=== PATIENT | male | born 1950 | race Caucasian/White ===

== ENCOUNTER 2017-07-22 18:47 | Inpatient (IN) | payer MEDICARE, OTHER ==
[~2017-07-22] VITALS: Ht 193 cm; Wt 66.2 kg
--- NOTE | 2017-07-22 18:59 | ED.ADGEN ---
Past History Past Medical History: CAD, CHF, COPD Past Surgical History: Other Smoking: Cigarettes Adult General Chief Complaint Chief Complaint ".. I just.... got discharged ......from the [place]... but they ....did not.... get my home.... oxygen set up.. and my tank ....ran out... " [facility] HPI Patient is a 66 year old male who presents with respiratory failure. Pt. presents with hypoxia after recent discharge from [place] for COPD exacerbation. Bi Consultant advised on arrival in severe respiratory distress . The pt. sats were too low to read and even after treatments his sats. were only 70%, Pt. hx 95 pack year smoking hx, has been so short of breath today he could not smoke. Pt. portable tank ran out today. Pt. hx of 3 liter oxygen dependent. Pt. sent to [place] since [place] on diversion. Pt. has as yet not been intubated for a COPD exacerbation. Pt. denies any travel, any specific ill contacts, other than other hospitalized patients. Patient in obvious respiratory distress and tachycardic. Pt. only able to speak in 2 to 3 words groups due to his severe dyspnea. Patient has been complaining of chills, fever, rhinorrhea , pharyngitis, nausea,myalgia, arthralgia, and malaise. Patient reports his symptoms seem worse the last couple days. Review of Systems Review of Systems Constitutional: Subjective history fever or chills [] Eyes: Denies change in visual acuity, redness, or eye pain [] HENT: History nasal congestion and sore throat [] Respiratory: History cough and shortness of breath [] Cardiovascular: No additional information not addressed in HPI [] GI: Denies abdominal pain, nausea, vomiting, bloody stools or diarrhea [] : Denies dysuria or hematuria [] Musculoskeletal: Complains of generalized muscle and or joint pain [] Integument: Denies rash or skin lesions [] Neurologic: Denies headache, focal weakness or sensory changes [] Endocrine: Denies polyuria or polydipsia [] All other systems were reviewed and found to be within normal limits, except as documented in this note. Family History Family History Noncontributory Current Medications Current Medications Current Medications Medications (Trade) Dose Ordered Sig/Ingrid Start Time Stop Time Status Last Admin Dose Admin Albuterol/ Ipratropium (Duoneb) 3 ml RTQID 07/23/17 08:00 07/24/17 07:59 Aspirin (Children'S Aspirin) 81 mg DAILY 07/23/17 09:00 Azithromycin (Zithromax) 250 mg DAILY 07/23/17 09:00 Ceftriaxone Sodium 1 gm/ Sodium Chloride 50 ml @ 100 mls/hr DAILY 07/23/17 09:00 UNV Ceftriaxone Sodium (Rocephin) 1 gm 1X ONCE 07/22/17 19:45 07/22/17 19:46 DC 07/22/17 19:42 1 GM Enoxaparin Sodium (Lovenox 80mg Syringe) 70 mg Q12HR 07/23/17 09:00 Enoxaparin Sodium (Lovenox) 75 mg BID 07/22/17 21:00 07/22/17 21:09 DC Info (Do NOT chart on this entry -- for MONITORING) 1 each PRN DAILY PRN 07/22/17 20:45 07/24/17 20:44 Iohexol (Omnipaque 300 Mg/ml) 75 ml 1X ONCE 07/22/17 21:00 07/22/17 21:01 DC 07/22/17 21:19 75 ML Lactobacillus Rhamnosus (Culturelle) 1 cap BID 07/23/17 09:00 Methylprednisolone Sodium Succinate (SOLU-Medrol 125MG VIAL) 125 mg 1X ONCE 07/22/17 19:45 07/22/17 19:46 DC 07/22/17 19:38 125 MG Morphine Sulfate (Morphine 10mg Syringe) 10 mg PRN QID PRN 07/22/17 21:00 Ondansetron HCl (Zofran) 4 mg PRN Q4HRS PRN 07/22/17 20:30 07/23/17 20:29 Oseltamivir Phosphate (Tamiflu) 75 mg BID 07/22/17 21:00 07/27/17 20:59 Sodium Chloride 1,000 ml @ 100 mls/hr Q10H 07/22/17 19:00 07/23/17 04:59 07/22/17 19:42 100 MLS/HR See nursing for home meds Allergies Allergies Allergies Coded Allergies Type Severity Reaction Last Updated Verified No Known Drug Allergies 07/22/17 No No known drug allergies Physical Exam Physical Exam Constitutional: in acute distress, non-toxic appearance. [] HENT: Normocephalic, atraumatic, bilateral external ears normal, oropharynx moist, mild injection of pharynx, no oral exudates, nose rhinorrhea. Edentulous. Eyes: PERRLA, EOMI, conjunctiva normal, no discharge. [] Neck: Normal range of motion, no tenderness, supple, no stridor. [] Cardiovascular: Tachycardia Heart rate regular rhythm, no murmur [] Lungs & Thorax: Bilateral breath sounds equal apex with scattered wheezes throughout auscultation, [retractions, minimal air movement Abdomen: Bowel sounds normal, soft, no tenderness, no masses, no pulsatile masses. [] Skin: Warm, dry, no erythema, no rash. [] Back: Chronic low back pain, but complains of generalized arthralgia, myalgia and malaise. no CVA tenderness. Old surgical scars Extremities: No tenderness, no cyanosis, no clubbing, ROM intact, no edema. Muscle wasting Neurologic: Alert and oriented X 3, normal motor function, normal sensory function, no focal deficits noted. [] Psychologic: Affect anxious, judgement normal, mood normal. [] Current Patient Data Vital Signs Vital Signs Date Time Temp Pulse Resp B/P (MAP) Pulse Ox O2 Delivery O2 Flow Rate FiO2 07/22/17 19:20 97 Nasal Cannula 3.0 07/22/17 18:50 98.1 116 20 Lab Results Laboratory Tests Test 07/22/17 18:50 07/22/17 19:00 07/22/17 19:20 White Blood Count 10.0 x10^3/uL (4.0-11.0) Red Blood Count 5.34 x10^6/uL (4.30-5.70) Hemoglobin 17.2 g/dL (13.0-17.5) Hematocrit 50.2 % (39.0-53.0) Mean Corpuscular Volume 94 fL (79-100) Mean Corpuscular Hemoglobin 32 pg (25-35) Mean Corpuscular Hemoglobin Concent 34 g/dL (31-37) Red Cell Distribution Width 12.8 % (11.5-14.5) Platelet Count 199 x10^3/uL (140-400) Neutrophils (%) (Auto) 92 % (31-73) H Lymphocytes (%) (Auto) 3 % (24-48) L Monocytes (%) (Auto) 4 % (0-9) Eosinophils (%) (Auto) 0 % (0-3) Basophils (%) (Auto) 0 % (0-3) Neutrophils # (Auto) 9.2 x10^3uL (1.8-7.7) H Lymphocytes # (Auto) 0.3 x10^3/uL (1.0-4.8) L Monocytes # (Auto) 0.4 x10^3/uL (0.0-1.1) Eosinophils # (Auto) 0.0 x10^3/uL (0.0-0.7) Basophils # (Auto) 0.0 x10^3/uL (0.0-0.2) Prothrombin Time 11.8 SEC (9.4-11.4) H Prothrombin Time INR 1.2 (0.9-1.1) H PTT 27 SEC (23-33) D-Dimer (Funmi) 1.07 mg/L (0.00-0.50) H Sodium Level 138 mmol/L (136-145) Potassium Level 4.9 mmol/L (3.5-5.1) Chloride Level 98 mmol/L (98-107) Carbon Dioxide Level 32 mmol/L (21-32) Anion Gap 8 (6-14) Blood Urea Nitrogen 25 mg/dL (8-26) Creatinine 0.9 mg/dL (0.7-1.3) Estimated GFR (Cockcroft-Gault) 85.0 Glucose Level 155 mg/dL (70-99) H Calcium Level 8.9 mg/dL (8.5-10.1) Magnesium Level 2.3 mg/dL (1.8-2.4) Total Bilirubin 0.4 mg/dL (0.2-1.0) Direct Bilirubin 0.1 mg/dL (0.0-0.2) Aspartate Amino Transferase (AST) 39 U/L (15-37) H Alanine Aminotransferase (ALT) 36 U/L (16-63) Alkaline Phosphatase 85 U/L (46-116) Creatine Kinase 82 U/L (39-308) Creatine Kinase MB (Mass) 3.7 ng/mL (0.0-3.6) H Creatine Kinase MB Relative Index 4.5 % (0-4) H Troponin I Quantitative < 0.017 ng/mL (0-0.055) FY-Kka-U-Type Natriuretic Peptide 288 pg/mL (0-124) H Total Protein 7.5 g/dL (6.4-8.2) Albumin 3.3 g/dL (3.4-5.0) L Lipase 67 U/L (73-393) L Blood pH 7.35 (7.35-7.46) Blood Gas PCO2 57 mmHg (35-46) H Blood Gas PO2 100 mmHg (80-100) Blood Gas HCO3 31 mmol/L (21-28) H Arterial Bld O2 Saturation (Calc) 97 % (92-99) FiO2 32 % Influenza Type A (Rapid) Negative (NEGATIVE) Influenza Type B (Rapid) Positive (NEGATIVE) EKG EKG My interpretation EKG shows a sinus tachycardia at 107 bpm with bi multiple P waves, left axis and anterior lateral strain pattern.[] Radiology/Procedures Radiology/Procedures My interpretation chest x-ray shows chronic scarring, flattening of diaphragm and hyperexpanded with emphysema/COPD changes.[] CT of chest pending at time of admission Course & Med Decision Making Course & Med Decision Making Pertinent Labs and Imaging studies reviewed. (See chart for details) Discussed presentation, testing and tx. plan with Dr. Fierro for further evaluation and treatment [] Final Impression Final Impression 1. Respiratory Failure 2. COPD exacerbation 3. Hypoxia[] 4. Influenza B 5. Elevated d-dimer 6. Elevated glucose 7. Viral syndrome Problems: Dragon Disclaimer Dragon Disclaimer This electronic medical record was generated, in whole or in part, using a voice recognition dictation system. KALIA QUIÑONES MD Jul 22, 2017 18:59
[2017-07-22] MEDS ORDERED: IPRATRPIUM/ALBUTEROL 0.5/2.5MG 3 ML NEBU. NEB ONE (19:00)
[2017-07-22] MEDS ORDERED: IV NORMAL SALINE 1,000ML 1,000 ML IV SCH (19:00)
[2017-07-22 19:11] LABS: BGAS PH 7.35 (7.35-7.46)
[2017-07-22 19:16] LABS: BASO % 0 % (0-3); EOS % 0 % (0-3); HEMATOCRIT 50.2 % (39.0-53.0); HEMOGLOBIN 17.2 g/dL (13.0-17.5); LYMPH # 0.3 x10^3/uL (1.0-4.8); LYMPH % 3 % (24-48); MEAN CORPUSCULAR HEMOGLOBIN 32 pg (25-35); MEAN CORPUSCULAR HGB CONC 34 g/dL (31-37); MEAN CORPUSCULAR VOLUME 94 fL (79-100); MONO # 0.4 x10^3/uL (0.0-1.1); MONO % 4 % (0-9); NEUT # 9.2 x10^3uL (1.8-7.7); NEUT % 92 % (31-73); PLATELET COUNT 199 x10^3/uL (140-400); RED BLOOD COUNT 5.34 x10^6/uL (4.30-5.70); RED CELL DISTRIBUTION WIDTH 12.8 % (11.5-14.5)
[2017-07-22] MEDS ORDERED: cefTRIAXone SODIUM 1 GM VIAL IV ONE (19:29)
[2017-07-22 19:36] LABS: ALBUMIN 3.3 g/dL (3.4-5.0); CALCIUM 8.9 mg/dL (8.5-10.1); CREATININE 0.9 mg/dL (0.7-1.3); DIRECT BILIRUBIN 0.1 mg/dL (0.0-0.2); MAGNESIUM 2.3 mg/dL (1.8-2.4); POTASSIUM 4.9 mmol/L (3.5-5.1); TOTAL BILIRUBIN 0.4 mg/dL (0.2-1.0); TOTAL PROTEIN 7.5 g/dL (6.4-8.2)
[2017-07-22] MEDS ORDERED: methylPREDNISolone SOD SUCC PF 125 MG/2 ML VIAL. IV ONE (19:45)
[2017-07-22] MEDS ORDERED: AZITHROMYCIN 250 MG TABLET. PO ONE (19:45)
[2017-07-22] MEDS ORDERED: cefTRIAXone IV Push 1 GM VIAL. IVP ONE (19:45)
[2017-07-22] MEDS ORDERED: MORPHINE SULFATE 10 MG/ML SYRINGE. SQ ONE (19:45)
[2017-07-22] MEDS ORDERED: ASPIRIN 81 MG TAB.CHEW PO ONE (19:45)
[2017-07-22 20:08] LABS: INFLUENZA A PATIENT NEGATIVE (NEGATIVE); INFLUENZA B PATIENT POSITIVE (NEGATIVE)
[2017-07-22] MEDS ORDERED: ENOXAPARIN ** NOTE DOSE ** SYRINGE SQ ONE ×2 (20:18→20:30)
[2017-07-22] MEDS: OSELTAMIVIR 75 MG CAPSULE PO SCH ×2 (20:22→20:33)
[2017-07-22] MEDS ORDERED: OSELTAMIVIR 75 MG CAPSULE PO ONE (20:30)
[2017-07-22] MEDS ORDERED: ONDANSETRON PF 4 MG/2 ML VIAL. IV PRN (20:30)
[2017-07-22] MEDS ORDERED: CONTRAST GIVEN MC PRN (20:45)
[2017-07-22] MEDS ORDERED: ENOXAPARIN 40 MG/0.4 ML DISP.SYRIN. SQ SCH (21:00)
[2017-07-22] MEDS ORDERED: MORPHINE SULFATE 10 MG/ML SYRINGE. SQ PRN (21:00)
[2017-07-22] MEDS ORDERED: IOHEXOL 300 MG/ML 75 ML VIAL. IV ONE (21:00)
--- NOTE | 2017-07-22 21:51 | EKG ---
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
[2017-07-22 22:16] LABS: AMPHETAMINE/METHAMPHETAMINE NEG (NEG); BARBITURATES NEG (NEG); BENZODIAZEPINES POS (NEG); CANNABINOIDS NEG (NEG); COCAINE NEG (NEG); METHADONE NEG (NEG); OPIATES POS (NEG); PHENCYCLIDINE NEG (NEG)
[2017-07-22 22:19] VITALS: BP 133/81
--- NOTE | 2017-07-22 22:23 | RAD ---
Exam performed: CT angiogram chest. HISTORY: COPD, emphysema, shortness of breath and elevated d-dimer. DATE OF SERVICE: 07/22/2017. COMPARISON: None available TECHNIQUE: Contiguous helical acquisitions are obtained through the chest during intravenous administration of 75 cc of Omnipaque 300. Sagittal and coronal MIP images are obtained and reviewed. FINDINGS: Adequate opacification of the pulmonary arteries. No filling defects to suggest pulmonary embolism is seen. Mild ectasia of the ascending aorta which measures up to 3.8 cm maximum AP dimension at the level of right main pulmonary artery. The central airway is patent without endoluminal lesions. No neck or axillary is seen. Mildly prominent mediastinal and right hilar lymph nodes are identified. Bilateral emphysematous changes with more severe biapical emphysematous changes. Patchy infiltrates seen in both lung bases and right middle lobe, greatest in the right lung base. There are changes of mild bronchiectasis in both lower lobes. There is no pleural effusion or pneumothorax. Limited evaluation of the upper abdominal structures is unremarkable. There is perhaps a nonobstructing calculus in the left kidney. IMPRESSION: 1. Diffuse bilateral emphysematous changes with scattered infiltrates in both lower lobes and right middle lobe. 2. No evidence of pulmonary embolism seen. 3. Mild aneurysmal dilatation of the ascending aorta measuring up to 3.8 cm at the level of right main pulmonary artery. 4. Nonobstructing left renal calculus. PQRS Compliance Statement: One or more of the following individualized dose reduction techniques were utilized for this examination: 1. Automated exposure control 2. Adjustment of the mA and/or kV according to patient size 3. Use of iterative reconstruction technique Electronically signed by: Anabella Arrieta MD (07/22/2017 10:19 PM) [facility]
[2017-07-22 22:28] LABS: BACTERIA,URINE 0 /HPF (0-FEW); BILIRUBIN,URINE NEG (NEG); CLARITY,URINE CLEAR; COLOR,URINE YELLOW; GLUCOSE,URINE NEG (NEG); NITRITE,URINE NEG (NEG); SQUAMOUS EPITHELIAL CELL,UR FEW /LPF; UROBILINOGEN,URINE 0.2 mg/dL (0.2 mg/dL)
[2017-07-22 22:31] LABS: HYALINE CASTS, URINE FEW /HPF
[2017-07-23] VITALS (7 sets, daily range): BP systolic 113–137; BP diastolic 71–85
[2017-07-23] MEDS: IPRATRPIUM/ALBUTEROL 0.5/2.5MG 3 ML NEBU. NEB SCH ×4 (04:40→20:48)
[2017-07-23] MEDS: ALPRAZolam 0.25 MG TABLET PO PRN ×3 (06:06→21:07)
[2017-07-23] MEDS: ASPIRIN 81 MG TAB.CHEW PO SCH (09:00)
[2017-07-23] MEDS ORDERED: ENOXAPARIN ** NOTE DOSE ** SYRINGE SQ SCH (09:00)
[2017-07-23] MEDS: OSELTAMIVIR 75 MG CAPSULE PO SCH ×2 (09:19→21:07)
[2017-07-23] MEDS: LACTOBACILLUS RHAMNOSUS GG 1 CAPSULE. PO SCH ×2 (09:20→21:07)
[2017-07-23] MEDS: AZITHROMYCIN 250 MG TABLET. PO SCH (09:20)
--- NOTE | 2017-07-23 09:51 | RAD ---
Indication: Hypoxemia. History of COPD. Technique: Portable AP upright chest x-ray Comparison: None Findings: Heart is normal in size. Lungs are hyperinflated without focal consolidation. No pneumothorax or pleural effusion. Visualized bony thorax within normal limits. Impression: No acute cardiopulmonary process. Findings of COPD.
[2017-07-23] MEDS ORDERED: methylPREDNISolone SOD SUCC PF 125 MG/2 ML VIAL. IV ONE (15:00)
[2017-07-23] MEDS ORDERED: ALBUTEROL SULFATE 2.5 MG/3 ML NEBU. NEB PRN (15:00)
[2017-07-23] MEDS: oxyCODONE IR 5 MG TABLET PO PRN ×2 (15:08→21:07)
[2017-07-23] MEDS ORDERED: GABA-586 PO (16:35)
[2017-07-23] MEDS ORDERED: OXYC10TA PO (16:35)
[2017-07-23 17:12] LABS: BGAS PH 7.37 (7.35-7.46)
[2017-07-23] MEDS: PIPERACILLIN/TAZOBACTAM 3.375 GM in IV NORMAL SALINE 50ML 50 ML IV SCH (17:28)
[2017-07-23] MEDS ORDERED: cefTRIAXone IV Push 1 GM VIAL. IVP SCH (20:00)
--- NOTE | 2017-07-23 20:40 | HP ---
ADMIT DATE: 07/22/2017 HISTORY OF PRESENT ILLNESS: The patient is a 66-year-old male patient, a , who came to the Emergency Room, who was discharged from a [facility] yesterday. He was admitted there with COPD exacerbation and was discharged home with oxygen. Unfortunately, his oxygen tank was empty and the certified medical dosimetrist on arrival found him to be in severe respiratory distress and his oxygen saturation was extremely low and even after treatment, his oxygen saturation was only 70%. The patient is a heavy smoker, has been a smoker for almost 45 years and has a 95 pack year smoking history and apparently has been so short of breath that he could not smoke. His oxygen portable tank ran out yesterday. He has been on 3 L of oxygen continuously. He was sent to [facility] since the OR was on diversion; however, he has never been intubated for COPD exacerbation. He denied any travel, any specific ill contact other than being hospitalized patient and by the time he arrived here, he was in obvious respiratory distress, tachypneic, was barely able to walk, to speak even 2-3 words due to severe dyspnea, has been complaining of chills, fever, rhinorrhea, pharyngitis, nausea, myalgia, arthralgia and malaise and he reported that his symptoms seem to be worse the last couple of days. He was evaluated in the Emergency Room, was found to be positive for influenza B. His D-dimer was high and he underwent CT angio, which basically showed no evidence of pulmonary embolism; however, he has diffuse bilateral emphysematous changes with scattered infiltrates in both lower lobes and right middle lobe and was admitted with COPD exacerbation, acute hypoxic hypercapnic respiratory failure, pneumonia, and ____ influenza B. PAST MEDICAL HISTORY: Significant for COPD. He has also bilateral cataract, underwent cataract extraction in 1 eye and is scheduled to have it done to the other eye. PAST SURGICAL HISTORY: Significant for multiple prostate biopsies with questionable prostate cancer, nasal surgery, back surgery. ALLERGIES: The patient has no known drug allergies. MEDICATIONS: Unfortunately, we do not know his home medications. FAMILY HISTORY: He has 2 brothers, 1 killed himself, one still alive and healthy, one sister is alive, but does not know her. Both parents were . SOCIAL HISTORY: He is , has no children. He is a heavy smoker, smokes 2-1/2 packs a day for almost 45 years. Does not drink alcohol or use any recreational drugs. He is retired from the [employer]. REVIEW OF SYSTEMS: The patient has bilateral cataracts and status post cataract extraction in 1 eye. Denied any glaucoma or macular degeneration. Denied any earache, tinnitus or sensorineural deafness. Denied any nosebleeds, stuffy nose or postnasal drip. Denied any sore throat, sore tongue, toothache, hoarseness of voice or difficulty swallowing. He did say that he lost about 65 pounds in the last 4 years unintentionally. Denied any nausea or vomiting, but did have multiple episodes of diarrhea over the last 4 days. Denied any hematemesis, melena or hematochezia. Denied any dysuria, frequency, or hematuria, did complain of nocturia. He states that he wakes up about up to 10 times at nighttime to go to the bathroom. He denied any chest pain. Did complain of shortness of breath, cough, which is mostly dry. Denied any orthopnea or paroxysmal nocturnal dyspnea. Did complain of chills, rigors and fever. Denied any dizziness, lightheadedness, or vertigo. PHYSICAL EXAMINATION: GENERAL: On arrival to the Emergency Room, he was somewhat cachectic. No pallor or jaundice. No lymphadenopathy, no thyromegaly. No jugular venous distention. No limb edema. VITAL SIGNS: His heart rate was 116, blood pressure was 133/81, temperature was 98.1, respiratory rate was 20, and oxygen saturation was 98% on 3 L of oxygen by nasal cannula. HEAD, EYES, EARS, NOSE AND THROAT: Showed normocephalic, atraumatic. NECK: Supple. HEART: Showed normal first and second heart sounds with no gallop, rub or murmur. CHEST: Clear to auscultation. No crepitation or rhonchi. ABDOMEN: Distended, soft, nontender. No guarding or rigidity. No organomegaly. Hernial orifice intact. Bowel sounds normal. NEUROLOGIC: He was awake, alert, responding appropriately. Cranial nerves intact. EXTREMITIES: He moves extremities without difficulty, ambulates without assistance or assistive devices. LABORATORY DATA: His white cell count was 10,000, hemoglobin 17, hematocrit 50, MCV 94 and platelet count of 199,000. His chemistry showed a serum sodium 138, potassium 4.9, chloride 98, bicarbonate 32, anion gap of 8, BUN 25, creatinine 0.9, estimated GFR was 85 mL per minute, his glucose 155, calcium was 8.9, magnesium was 2.3. Total bilirubin, AST, ALT, and alkaline phosphatase were normal. His total protein was 7.5, albumin was 3.3. Lipase was 67. TSH was 0.329. His arterial blood gases showed a pH of 7.35, pCO2 of 57, pO2 of 100. His bicarbonate was 31 and oxygen saturation was 97% on FiO2 of 32%. His prothrombin time was 11.8, INR 1.2, APTT was 27. D-dimer is 1.07. Urinalysis was essentially unremarkable. There was large amount of blood and 11-20 rbc's, there were 1-4 wbc's, very few bacteria. His toxic screen was positive for opiates and benzodiazepine. His serology was positive for influenza B. His chest x-ray showed the heart is normal in size. Lungs are hyperinflated without local consolidation, no pneumothorax, no pleural effusion, visualized bony thorax within normal limits. His CT angio showed that the patient has diffuse bilateral emphysematous changes with scattered infiltrates in both lower lobes and right middle lobe. No evidence of pulmonary embolism seen. He has mild aneurysmal dilatation of the ascending aorta measuring up to 3.8 cm at the level of right main pulmonary artery, nonobstructing left renal calculus. IMPRESSION: In summary, this is a 66-year-old male patient who was admitted with an acute hypoxic hypercapnic respiratory failure, chronic obstructive pulmonary disease exacerbation, influenza B, and bilateral lung infiltrate. He has also enlarged and benign prostatic hypertrophy versus prostate cancer with severe nocturia. My plan is to discontinue the Lovenox and start him only on prophylactic dose and add steroids. Continue with IV antibiotic and nebulized treatment as well as Tamiflu. We will scan his bladder to see if he is retaining any urine as he might require catheterization. BARB CORTEZ MD DR: TRINI/jeancarlos JOB#: [id number] / [id number]
[2017-07-23] MEDS: BUDESONIDE 0.5 MG/2 ML NEBU NEB SCH (20:48)
[2017-07-23] MEDS: MONTELUKAST 10 MG TABLET. PO SCH (21:07)
[2017-07-23] MEDS: TAMSULOSIN 0.4 MG CAP.ER.24H. PO SCH (21:07)
[2017-07-23] MEDS: methylPREDNISolone SOD SUCC PF 40 MG/ML VIAL. IV SCH (22:00)
[2017-07-24] MEDS: PIPERACILLIN/TAZOBACTAM 3.375 GM in IV NORMAL SALINE 50ML 50 ML IV SCH ×3 (00:05→15:18)
[2017-07-24 02:51] VITALS: BP 115/62
[2017-07-24] MEDS: ALPRAZolam 0.25 MG TABLET PO PRN ×4 (03:05→20:21)
[2017-07-24] MEDS: oxyCODONE IR 5 MG TABLET PO PRN ×4 (03:05→20:22)
[2017-07-24] MEDS: IPRATRPIUM/ALBUTEROL 0.5/2.5MG 3 ML NEBU. NEB SCH ×4 (05:00→20:12)
[2017-07-24 05:48] VITALS: BP 114/75
[2017-07-24] MEDS: methylPREDNISolone SOD SUCC PF 40 MG/ML VIAL. IV SCH ×3 (06:25→22:25)
[2017-07-24 06:59] LABS: HEMATOCRIT 42.7 % (39.0-53.0); HEMOGLOBIN 14.3 g/dL (13.0-17.5); RED BLOOD COUNT 4.51 x10^6/uL (4.30-5.70); RED CELL DISTRIBUTION WIDTH 12.9 % (11.5-14.5); WHITE BLOOD COUNT 10.3 x10^3/uL (4.0-11.0)
[2017-07-24 07:15] LABS: ALBUMIN 2.7 g/dL (3.4-5.0); ALBUMIN/GLOBULIN RATIO 0.7 (1.0-1.7); CALCIUM 8.7 mg/dL (8.5-10.1); CREATININE 0.8 mg/dL (0.7-1.3); GFR 97.3; POTASSIUM 4.1 mmol/L (3.5-5.1); TOTAL BILIRUBIN 0.2 mg/dL (0.2-1.0); TOTAL PROTEIN 6.7 g/dL (6.4-8.2)
[2017-07-24] MEDS: LACTOBACILLUS RHAMNOSUS GG 1 CAPSULE. PO SCH ×2 (08:54→20:21)
[2017-07-24] MEDS: ASPIRIN 81 MG TAB.CHEW PO SCH (08:54)
[2017-07-24] MEDS: AZITHROMYCIN 250 MG TABLET. PO SCH (08:54)
[2017-07-24] MEDS: OSELTAMIVIR 75 MG CAPSULE PO SCH ×2 (08:54→20:21)
[2017-07-24] MEDS: ENOXAPARIN 40 MG/0.4 ML DISP.SYRIN. SQ SCH (08:55)
[2017-07-24] MEDS: BUDESONIDE 0.5 MG/2 ML NEBU NEB SCH ×2 (11:14→20:12)
[2017-07-24] MEDS: levoFLOXacin 500 MG TABLET PO SCH (17:07)
[2017-07-24 19:23] VITALS: BP 119/78
[2017-07-24] MEDS: MONTELUKAST 10 MG TABLET. PO SCH (20:21)
[2017-07-24] MEDS: TAMSULOSIN 0.4 MG CAP.ER.24H. PO SCH (20:21)
[2017-07-24 22:18] VITALS: BP 96/71
[2017-07-25] MEDS: PIPERACILLIN/TAZOBACTAM 3.375 GM in IV NORMAL SALINE 50ML 50 ML IV SCH ×3 (00:21→15:48)
[2017-07-25] MEDS: ALPRAZolam 0.25 MG TABLET PO PRN ×4 (00:21→14:44)
[2017-07-25] MEDS: oxyCODONE IR 5 MG TABLET PO PRN ×4 (00:22→14:44)
--- NOTE | 2017-07-25 00:28 | PN ---
DATE: 07/23/2017 SUBJECTIVE: The patient is a 66-year-old who was admitted yesterday with COPD exacerbation and acute hypoxic hypercapnic respiratory failure, bilateral lung infiltrate and influenza B. He also has chronic back pain. He continued to complain of shortness of breath and back pain. He also has pain in his suprapubic area and continued to have nocturia. PHYSICAL EXAMINATION: GENERAL: When I saw him this afternoon, he was resting slightly propped up in bed, slightly tachypneic, but there is no pallor, jaundice, cyanosis, or thyromegaly. No jugular venous distension. No lower limb edema. VITAL SIGNS: His heart rate was 79, blood pressure was 137/85, temperature was 98.4, respiratory rate was 22 and oxygen saturation was 98% on 3 liters of oxygen. HEAD, EYES, EARS, NOSE AND THROAT: Showed normocephalic, atraumatic. NECK: Supple. HEART: Showed normal first and second heart sounds with no gallop, rub or murmur. CHEST: Showed central trachea, equally reduced expansion, reduced air entry, vesicular sounds. I really could not appreciate any crepitation or rhonchi. ABDOMEN: Scaphoid, soft, nontender. NEUROLOGIC: He is awake, alert, responding appropriately. All cranial nerves are intact. He moves extremities without difficulty. He ambulates without assistance or assistive devices. ASSESSMENT: 1. Acute hypoxic hypercapnic respiratory failure. 2. Chronic obstructive pulmonary disease exacerbation. 3. Bilateral lung infiltrate. 4. Influenza B. 5. Chronic back pain. 6. Benign prostatic hypertrophy versus prostate cancer. PLAN: My plan is to put him on Solu-Medrol 125 mg once a day and 60 mg every 8 hours. Add Singulair and Pulmicort. Discontinue subcutaneous morphine. Start him on oxycodone 5 mg every 4 hours. We will scan his bladder to make sure that he has no urinary retention. Start him also on Flomax 0.4 mg. I will check and repeat all his labs including PSA tomorrow. BARB CORTEZ MD DR: TRINI/jeancarlos JOB#: [id number] / [id number]
[2017-07-25 01:29] VITALS: BP 111/76
[2017-07-25] MEDS: IPRATRPIUM/ALBUTEROL 0.5/2.5MG 3 ML NEBU. NEB SCH ×3 (05:20→14:42)
[2017-07-25 05:56] VITALS: BP 95/71
[2017-07-25] MEDS: methylPREDNISolone SOD SUCC PF 40 MG/ML VIAL. IV SCH ×2 (06:03→14:53)
[2017-07-25 06:47] LABS: BASO % 0 % (0-3); EOS % 0 % (0-3); HEMATOCRIT 39.8 % (39.0-53.0); HEMOGLOBIN 13.5 g/dL (13.0-17.5); LYMPH # 0.5 x10^3/uL (1.0-4.8); LYMPH % 5 % (24-48); MEAN CORPUSCULAR HEMOGLOBIN 32 pg (25-35); MEAN CORPUSCULAR HGB CONC 34 g/dL (31-37); MEAN CORPUSCULAR VOLUME 94 fL (79-100); MONO # 0.7 x10^3/uL (0.0-1.1); MONO % 7 % (0-9); NEUT # 8.9 x10^3uL (1.8-7.7); NEUT % 88 % (31-73); PLATELET COUNT 196 x10^3/uL (140-400); RED BLOOD COUNT 4.22 x10^6/uL (4.30-5.70); RED CELL DISTRIBUTION WIDTH 12.7 % (11.5-14.5); WHITE BLOOD COUNT 10.1 x10^3/uL (4.0-11.0)
[2017-07-25 06:50] LABS: ALBUMIN 2.4 g/dL (3.4-5.0); ALBUMIN/GLOBULIN RATIO 0.6 (1.0-1.7); CALCIUM 8.1 mg/dL (8.5-10.1); CREATININE 0.7 mg/dL (0.7-1.3); GFR 113.5; POTASSIUM 4.3 mmol/L (3.5-5.1); TOTAL BILIRUBIN 0.2 mg/dL (0.2-1.0); TOTAL PROTEIN 6.1 g/dL (6.4-8.2)
[2017-07-25] MEDS: LACTOBACILLUS RHAMNOSUS GG 1 CAPSULE. PO SCH (08:24)
[2017-07-25] MEDS: ASPIRIN 81 MG TAB.CHEW PO SCH (08:24)
[2017-07-25] MEDS: OSELTAMIVIR 75 MG CAPSULE PO SCH (08:25)
[2017-07-25] MEDS: AZITHROMYCIN 250 MG TABLET. PO SCH (08:25)
[2017-07-25] MEDS: ENOXAPARIN 40 MG/0.4 ML DISP.SYRIN. SQ SCH (08:25)
[2017-07-25] MEDS ORDERED: 0.9 % SODIUM CHLORIDE 150ML 150 ML ONE (08:39)
--- NOTE | 2017-07-25 08:49 | PN ---
DATE: SUBJECTIVE: The patient is resting, slightly propped up in bed, in no apparent respiratory distress. He is definitely much improved than yesterday. PHYSICAL EXAMINATION: GENERAL: When I examined him, he looked well. No pallor, jaundice, cyanosis, or thyromegaly. No jugular venous distension. No lower limb edema. VITAL SIGNS: His heart rate was 66, blood pressure 114/75, temperature was 97.6, respiratory rate was 20, and oxygen saturation was 98% on 2 liters of oxygen. HEAD, EYES, EARS, NOSE, AND THROAT: Normocephalic, atraumatic. NECK: Supple. HEART: Showed normal first and second heart sounds with no gallop, rub, or murmur. CHEST: Showed central trachea, equally reduced expansion, reduced air entry, vesicular sounds. I could not really appreciate any crepitation or rhonchi. ABDOMEN: Distended, soft, nontender. NEUROLOGIC: He is awake, alert, responding appropriately. Cranial nerves intact. He moves all extremities without difficulty. His intake over the last 24 hours was 1680, output was 850. LABORATORY DATA: His lab work this morning showed a white cell count of 10,300, hemoglobin 14, hematocrit 42, MCV 95 and platelet count of 178,000. His blood gases showed a pH of 7.37, pCO2 of 65, pO2 of 114, bicarb 37, and oxygen saturation was 98% on FiO2 of 36%. His blood cultures are so far negative. ASSESSMENT: This is a 66-year-old male patient, who was admitted with: 1. Acute hypoxic hypercapnic respiratory failure. 2. Chronic obstructive pulmonary disease exacerbation. 3. Influenza B. 4. Bilateral lung infiltrate, likely healthcare-associated pneumonia. 5. Benign prostatic hypertrophy. PLAN: To continue with the Lovenox for DVT prophylaxis. Continue with steroids, bronchodilators, and antibiotics as well as Tamiflu. BARB CORTEZ MD DR: TRINI/jeancarlos JOB#: [id number] / [id number]
--- NOTE | 2017-07-25 09:14 | PDOC2 ---
CONSULT Date of Admission DATE: 07/25/17 TIME: 09:02 Reason for Consult: NSVT Problem List Problems Medical Problems: (1) COPD exacerbation Status: Acute History of Present Illness Mr Nash is a 66 year old male who presented to the ED with complaints of dyspnea. He reports that he has had increasing dyspnea since March to the point that 1 week ago Tuesday he was dyspneic at rest. He was admitted overnight at the [facility] and discharged home. He went back the next day with continued symptoms and was readmitted. He was discharged Tuesday with oxygen but apparently the tank was empty so he once again called EMS, was diverted here to [facility] and admitted. He was found to have pneumonia and influenza B and last pm he had an episode of VT so consult was called. He is currently dyspneic at rest with conversing. He denies chest pain. He does report orthopnea and says he has not slept more than a few hours in quite some time due to dyspnea. He reports occasional palpitations and a remote history of recurrent syncope. He denies edema. He was noted to have wide complex tachycardia last pm, onset after up to bedside commode. Arrhythmia lasted >2 minutes and was associated with increased dyspnea and chest discomfort. Past Medical History COPD, bilateral cataract, enlarged prostate Past Surgical History cataract extraction in 1 eye and is scheduled for the other, multiple prostate biopsies, nasal surgery, back surgery Family History No history of premature coronary disease Social History SOCIAL HISTORY: He is , has no children. He is a heavy smoker, smoked 2-1/2 packs a day for almost 45 years, no smoking for 1 week. Does not drink alcohol or use any recreational drugs. He is retired from the [employer]. Current Medications Current Medications Aspirin (Children'S Aspirin) 324 mg 1X ONCE PO Last administered on 07/22/17at 19:37; Start 07/22/17 at 19:45; Stop 07/22/17 at 19:46; Status DC Sodium Chloride 1,000 ml @ 100 mls/hr Q10H IV Last administered on 07/22/17at 19 :42; Start 07/22/17 at 19:00; Stop 07/23/17 at 04:59; Status DC Methylprednisolone Sodium Succinate (SOLU-Medrol 125MG VIAL) 125 mg 1X ONCE IV Last administered on 07/22/17at 19:38; Start 07/22/17 at 19:45; Stop 07/22/17 at 19:46; Status DC Ceftriaxone Sodium 1 gm/ Sodium Chloride 50 ml @ 100 mls/hr 1X ONCE IV ; Start 07/22/17 at 19:00; Stop 07/22/17 at 19:29; Status UNV Azithromycin (Zithromax) 500 mg 1X ONCE PO Last administered on 07/22/17at 19:44 ; Start 07/22/17 at 19:45; Stop 07/23/17 at 15:19; Status DC Albuterol/ Ipratropium (Duoneb) 3 ml 1X ONCE NEB Last administered on at 19:19; Start 07/22/17 at 19:00; Stop 07/22/17 at 19:33; Status DC Morphine Sulfate (Morphine 10mg Syringe) 10 mg 1X ONCE SQ Last administered on 07/22/17at 19:35; Start 07/22/17 at 19:45; Stop 07/23/17 at 15:09; Status DC Ceftriaxone Sodium (Rocephin) 1 gm STK-MED ONCE IV ; Start 07/22/17 at 19:29; Stop 07/22/17 at 19:30; Status DC Ceftriaxone Sodium (Rocephin) 1 gm 1X ONCE IVP Last administered on 07/22/17at 19:42; Start 07/22/17 at 19:45; Stop 07/22/17 at 19:46; Status DC Oseltamivir Phosphate (Tamiflu) 75 mg 1X ONCE PO Last administered on at 20:22; Start 07/22/17 at 20:30; Stop 07/22/17 at 20:31; Status DC Enoxaparin Sodium (Lovenox 80mg Syringe) 70 mg 1X ONCE SQ Last administered on 07/22/17at 20:24; Start 07/22/17 at 20:30; Stop 07/22/17 at 20:31; Status DC Enoxaparin Sodium (Lovenox 80mg Syringe) 80 mg STK-MED ONCE SQ ; Start 07/22/17 at 20:18; Stop 07/22/17 at 20:19; Status DC Ondansetron HCl (Zofran) 4 mg PRN Q4HRS PRN IV NAUSEA/VOMITING; Start 07/22/17 at 20:30; Stop 07/23/17 at 20:29; Status DC Albuterol/ Ipratropium (Duoneb) 3 ml RTQID NEB Last administered on 07/23/17at 20 :48; Start 07/23/17 at 08:00; Stop 07/24/17 at 07:59; Status DC Enoxaparin Sodium (Lovenox) 75 mg BID SQ ; Start 07/22/17 at 21:00; Stop 07/22/17 at 21:09; Status DC Aspirin (Children'S Aspirin) 81 mg DAILY PO Last administered on 07/25/17at 08:24 ; Start 07/23/17 at 09:00 Oseltamivir Phosphate (Tamiflu) 75 mg BID PO Last administered on 07/25/17at 08: 25; Start 07/22/17 at 21:00; Stop 07/27/17 at 20:59 Azithromycin (Zithromax) 250 mg DAILY PO Last administered on 07/25/17at 08:25; Start 07/23/17 at 09:00 Ceftriaxone Sodium 1 gm/ Sodium Chloride 50 ml @ 100 mls/hr DAILY IV ; Start at 09:00; Stop 07/23/17 at 09:00; Status DC Iohexol (Omnipaque 300 Mg/ml) 75 ml 1X ONCE IV Last administered on 07/22/17at 21:19; Start 07/22/17 at 21:00; Stop 07/22/17 at 21:01; Status DC Info (Do NOT chart on this entry -- for MONITORING) 1 each PRN DAILY PRN MC SEE COMMENTS; Start 07/22/17 at 20:45; Stop 07/24/17 at 20:44; Status DC Morphine Sulfate (Morphine 10mg Syringe) 10 mg PRN QID PRN SQ PAIN; Start at 21:00; Stop 07/23/17 at 15:09; Status DC Enoxaparin Sodium (Lovenox 80mg Syringe) 70 mg Q12HR SQ Last administered on 07/23/17at 09:21; Start 07/23/17 at 09:00; Stop 07/23/17 at 14:51; Status DC Lactobacillus Rhamnosus (Culturelle) 1 cap BID PO Last administered on at 08:24; Start 07/23/17 at 09:00 Ceftriaxone Sodium 1 gm/ Sodium Chloride 50 ml @ 100 mls/hr DAILY IV ; Start at 09:00; Status UNV Ceftriaxone Sodium (Rocephin) 1 gm Q24H IVP ; Start 07/23/17 at 20:00; Stop at 20:00; Status DC Alprazolam (Xanax) 0.25 mg PRN Q4HRS PRN PO ANXIETY / AGITATION Last administered on 07/25/17 04:23; Start 07/23/17 at 04:15 Enoxaparin Sodium (Lovenox) 40 mg DAILY SQ Last administered on 07/25/17 08:25 ; Start 07/24/17 at 09:00 Methylprednisolone Sodium Succinate (SOLU-Medrol 125MG VIAL) 125 mg 1X ONCE IV Last administered on 07/23/17 15:32; Start 07/23/17 at 15:00; Stop 07/23/17 at 15:02; Status DC Methylprednisolone Sodium Succinate (SOLU-Medrol 40MG VIAL) 60 mg Q8HRS IV Last administered on 07/25/17 06:03; Start 07/23/17 at 22:00 Albuterol Sulfate (Ventolin) 2.5 mg PRN Q2HR PRN NEB SHORTNESS OF BREATH; Start 07/23/17 at 15:00 Tamsulosin HCl (Flomax) 0.4 mg QHS PO Last administered on 07/24/17 20:21; Start 07/23/17 at 21:00 Montelukast Sodium (Singulair) 10 mg QHS PO Last administered on 07/24/17 20:21 ; Start 07/23/17 at 21:00 Budesonide (Pulmicort) 0.5 mg RTBID NEB Last administered on 07/24/17 20:12; Start 07/23/17 at 20:00 Oxycodone HCl (Roxicodone) 5 mg PRN Q4HRS PRN PO PAIN Last administered on 04:23; Start 07/23/17 at 15:00 Piperacillin Sod/ Tazobactam Sod 3.375 gm/Sodium Chloride 50 ml @ 100 mls/hr Q8H IV Last administered on 07/25/17 08:24; Start 07/23/17 at 15:30 Levofloxacin/ Dextrose 100 ml @ 100 mls/hr Q24H IV Last administered on at 16:13; Start 07/23/17 at 16:00; Stop 07/24/17 at 12:06; Status DC Albuterol/ Ipratropium (Duoneb) 3 ml RTQID NEB Last administered on 07/24/17at 20 :12; Start 07/24/17 at 08:00 Levofloxacin (Levaquin) 500 mg Q24H PO Last administered on 07/24/17at 17:07; Start 07/24/17 at 16:00 Sodium Chloride 150 ml @ As Directed STK-MED ONCE .ROUTE Last administered on 07/25/17at 08:41; Start 07/25/17 at 08:39; Stop 07/25/17 at 08:40; Status DC Active Scripts Active Reported Oxycodone Hcl 10 Mg Tablet 10 Mg PO Gabapentin 300 Mg Capsule 300 Mg PO TID Allergies: Coded Allergies: No Known Drug Allergies (Unverified , 07/22/17) Review of System as per HPI General: Alert, Oriented X3, Cooperative, moderate distress HEENT: Atraumatic, EOMI Lungs: Other (decreased with occasional exp wheeze) Heart: Other (irregular rate and rhythm, no gallops) Abdomen: Normal bowel sounds, Soft Extremities: No cyanosis, Normal pulses, Other (trace edema) Neuro: Strength at 5/5 X4 ext Psych/Mental Status: Mental status NL, Mood NL VITALS Vital Signs Date Time Temp Pulse Resp B/P (MAP) Pulse Ox O2 Delivery O2 Flow Rate FiO2 07/25/17 05:56 97.5 72 18 95/71 (79) 95 Nasal Cannula 2.0 Labs Laboratory Tests Test 07/23/17 16:58 07/24/17 06:48 07/25/17 05:50 Blood Gas pH 7.37 (7.35-7.46) Blood Gas PCO2 65 mmHg (35-46) Blood Gas PO2 114 mmHg (80-100) Blood Gas HCO3 37 mmol/L (21-28) Arterial Bld O2 Saturation (Calc) 98 % (92-99) FiO2 36 % White Blood Count 10.3 x10^3/uL (4.0-11.0) 10.1 x10^3/uL (4.0-11.0) Red Blood Count 4.51 x10^6/uL (4.30-5.70) 4.22 x10^6/uL (4.30-5.70) Hemoglobin 14.3 g/dL (13.0-17.5) 13.5 g/dL (13.0-17.5) Hematocrit 42.7 % (39.0-53.0) 39.8 % (39.0-53.0) Mean Corpuscular Volume 95 fL (79-100) 94 fL (79-100) Mean Corpuscular Hemoglobin 32 pg (25-35) 32 pg (25-35) Mean Corpuscular Hemoglobin Concent 34 g/dL (31-37) 34 g/dL (31-37) Red Cell Distribution Width 12.9 % (11.5-14.5) 12.7 % (11.5-14.5) Platelet Count 178 x10^3/uL (140-400) 196 x10^3/uL (140-400) Sodium Level 141 mmol/L (136-145) 141 mmol/L (136-145) Potassium Level 4.1 mmol/L (3.5-5.1) 4.3 mmol/L (3.5-5.1) Chloride Level 100 mmol/L (98-107) 102 mmol/L (98-107) Carbon Dioxide Level 38 mmol/L (21-32) 40 mmol/L (21-32) Anion Gap 3 (6-14) -1 (6-14) Blood Urea Nitrogen 14 mg/dL (8-26) 14 mg/dL (8-26) Creatinine 0.8 mg/dL (0.7-1.3) 0.7 mg/dL (0.7-1.3) Estimated GFR (Cockcroft-Gault) 97.3 113.5 BUN/Creatinine Ratio 18 (6-20) 20 (6-20) Glucose Level 100 mg/dL (70-99) 109 mg/dL (70-99) Calcium Level 8.7 mg/dL (8.5-10.1) 8.1 mg/dL (8.5-10.1) Total Bilirubin 0.2 mg/dL (0.2-1.0) 0.2 mg/dL (0.2-1.0) Aspartate Amino Transf (AST/SGOT) 19 U/L (15-37) 17 U/L (15-37) Alanine Aminotransferase (ALT/SGPT) 27 U/L (16-63) 30 U/L (16-63) Alkaline Phosphatase 64 U/L (46-116) 54 U/L (46-116) Total Protein 6.7 g/dL (6.4-8.2) 6.1 g/dL (6.4-8.2) Albumin 2.7 g/dL (3.4-5.0) 2.4 g/dL (3.4-5.0) Albumin/Globulin Ratio 0.7 (1.0-1.7) 0.6 (1.0-1.7) Neutrophils (%) (Auto) 88 % (31-73) Lymphocytes (%) (Auto) 5 % (24-48) Monocytes (%) (Auto) 7 % (0-9) Eosinophils (%) (Auto) 0 % (0-3) Basophils (%) (Auto) 0 % (0-3) Neutrophils # (Auto) 8.9 x10^3uL (1.8-7.7) Lymphocytes # (Auto) 0.5 x10^3/uL (1.0-4.8) Monocytes # (Auto) 0.7 x10^3/uL (0.0-1.1) Eosinophils # (Auto) 0.0 x10^3/uL (0.0-0.7) Basophils # (Auto) 0.0 x10^3/uL (0.0-0.2) Images EKG - sinus tachycardia, left axis, non specific abnormalities CXR - Impression: No acute cardiopulmonary process. Findings of COPD. CT - IMPRESSION: 1. Diffuse bilateral emphysematous changes with scattered infiltrates in both lower lobes and right middle lobe. 2. No evidence of pulmonary embolism seen. 3. Mild aneurysmal dilatation of the ascending aorta measuring up to 3.8 cm at the level of right main pulmonary artery. 4. Nonobstructing left renal calculus. Assessment/Plan 1. Ventricular tachycardia 2. acute on chronic hypercapnic, hypoxic respiratory failure - multifactorial. +influenza B, pneumonia and emphysema. - mgmt per PCP 3. atrial fibrillation iwth RVR, new onset > 2 minutes of WCT suspicious for ventricular tachycardia as well as new onset atrial fibrillation with RVR. Start amiodarone drip and suggest transfer to [facility] for further cardiac workup as well as pulmonary consult. Problems: ALENA COOLEY APRN Jul 25, 2017 09:14
[2017-07-25] MEDS: BUDESONIDE 0.5 MG/2 ML NEBU NEB SCH (09:31)
[2017-07-25] MEDS ORDERED: AMIODARONE 150 MG in IV DEXTROSE 5% 100 ML IVP ONE (10:15)
[2017-07-25] MEDS ORDERED: NICOTINE 21MG PATCH. TD SCH (10:15)
[2017-07-25] MEDS ORDERED: AMIODARONE 900 MG in IV DEXTROSE 5% 500 ML IV PRN (10:30)
[2017-07-25] MEDS ORDERED: ALPR0.254 PO (10:44)
[2017-07-25] MEDS ORDERED: TAMS0.4C97 PO (10:44)
[2017-07-25] MEDS ORDERED: IPRA3AMP NEB (10:44)
[2017-07-25] MEDS ORDERED: NICO1PAT21 TP (10:44)
[2017-07-25] MEDS ORDERED: METH40VI IV (10:44)
[2017-07-25] MEDS ORDERED: [UNRECOGNIZED DRUG - CODE] IV (10:44)
[2017-07-25] MEDS ORDERED: OSEL75CA PO (10:44)
[2017-07-25] MEDS ORDERED: ALBU2.5V5 NEB (10:44)
[2017-07-25] MEDS ORDERED: LACT1CAP19 PO (10:44)
[2017-07-25] MEDS ORDERED: ENOX40DI3 SQ (10:44)
[2017-07-25] MEDS ORDERED: MONT10TA9 PO (10:44)
[2017-07-25] MEDS ORDERED: OXYC5TAB95 PO (10:44)
[2017-07-25] MEDS ORDERED: ASPI-630 PO (10:44)
[2017-07-25 10:53] VITALS: BP 116/69
[2017-07-25 15:00] VITALS: BP 141/79
[2017-07-25 15:47] VITALS: BP 141/79
--- NOTE | 2017-07-25 16:08 | PDOC3 ---
Discharge Summary Visit Information Date of Admission: Jul 22, 2017 Date of Discharge: Jul 25, 2017 Final Diagnosis Problems Medical Problems: (1) COPD exacerbation Status: Acute 1. Acute hypoxic hypercapnic respiratory failure. 2. Chronic obstructive pulmonary disease exacerbation. 3. Influenza B. 4. Bilateral lung infiltrate, likely healthcare-associated pneumonia. 5. Benign prostatic hypertrophy. 6. Tobacco use disorder 7. 3.8 cm aortic aneurysm 8. emphesema on ct 9. mildly suppressed TSH 10. DVT prophylaxis-on Lovonox Problems: Brief Hospital Course Allergies Allergies Coded Allergies Type Severity Reaction Last Updated Verified No Known Drug Allergies 07/22/17 No Vital Signs PE Mildly SOB, lungs with diffuse wheezes, cvrrr, ab soft non tender, ext without edema. Vital Signs Date Time Temp Pulse Resp B/P (MAP) Pulse Ox O2 Delivery O2 Flow Rate FiO2 07/25/17 15:47 97.7 75 141/79 (99) 99 2.0 07/25/17 14:44 18 07/25/17 10:53 Nasal Cannula Lab Results Laboratory Tests Test 07/23/17 16:58 07/24/17 06:48 07/25/17 05:50 Blood Gas pH 7.37 (7.35-7.46) Blood Gas PCO2 65 mmHg (35-46) Blood Gas PO2 114 mmHg (80-100) Blood Gas HCO3 37 mmol/L (21-28) Arterial Bld O2 Saturation (Calc) 98 % (92-99) FiO2 36 % White Blood Count 10.3 x10^3/uL (4.0-11.0) 10.1 x10^3/uL (4.0-11.0) Red Blood Count 4.51 x10^6/uL (4.30-5.70) 4.22 x10^6/uL (4.30-5.70) Hemoglobin 14.3 g/dL (13.0-17.5) 13.5 g/dL (13.0-17.5) Hematocrit 42.7 % (39.0-53.0) 39.8 % (39.0-53.0) Mean Corpuscular Volume 95 fL (79-100) 94 fL (79-100) Mean Corpuscular Hemoglobin 32 pg (25-35) 32 pg (25-35) Mean Corpuscular Hemoglobin Concent 34 g/dL (31-37) 34 g/dL (31-37) Red Cell Distribution Width 12.9 % (11.5-14.5) 12.7 % (11.5-14.5) Platelet Count 178 x10^3/uL (140-400) 196 x10^3/uL (140-400) Sodium Level 141 mmol/L (136-145) 141 mmol/L (136-145) Potassium Level 4.1 mmol/L (3.5-5.1) 4.3 mmol/L (3.5-5.1) Chloride Level 100 mmol/L (98-107) 102 mmol/L (98-107) Carbon Dioxide Level 38 mmol/L (21-32) 40 mmol/L (21-32) Anion Gap 3 (6-14) -1 (6-14) Blood Urea Nitrogen 14 mg/dL (8-26) 14 mg/dL (8-26) Creatinine 0.8 mg/dL (0.7-1.3) 0.7 mg/dL (0.7-1.3) Estimated GFR (Cockcroft-Gault) 97.3 113.5 BUN/Creatinine Ratio 18 (6-20) 20 (6-20) Glucose Level 100 mg/dL (70-99) 109 mg/dL (70-99) Calcium Level 8.7 mg/dL (8.5-10.1) 8.1 mg/dL (8.5-10.1) Total Bilirubin 0.2 mg/dL (0.2-1.0) 0.2 mg/dL (0.2-1.0) Aspartate Amino Transf (AST/SGOT) 19 U/L (15-37) 17 U/L (15-37) Alanine Aminotransferase (ALT/SGPT) 27 U/L (16-63) 30 U/L (16-63) Alkaline Phosphatase 64 U/L (46-116) 54 U/L (46-116) Total Protein 6.7 g/dL (6.4-8.2) 6.1 g/dL (6.4-8.2) Albumin 2.7 g/dL (3.4-5.0) 2.4 g/dL (3.4-5.0) Albumin/Globulin Ratio 0.7 (1.0-1.7) 0.6 (1.0-1.7) Prostate Specific Antigen 2.55 ng/ml (0.00-4.00) Neutrophils (%) (Auto) 88 % (31-73) Lymphocytes (%) (Auto) 5 % (24-48) Monocytes (%) (Auto) 7 % (0-9) Eosinophils (%) (Auto) 0 % (0-3) Basophils (%) (Auto) 0 % (0-3) Neutrophils # (Auto) 8.9 x10^3uL (1.8-7.7) Lymphocytes # (Auto) 0.5 x10^3/uL (1.0-4.8) Monocytes # (Auto) 0.7 x10^3/uL (0.0-1.1) Eosinophils # (Auto) 0.0 x10^3/uL (0.0-0.7) Basophils # (Auto) 0.0 x10^3/uL (0.0-0.2) Brief Hospital Course Mr. Nash is a 66 old [sex] who presented with [ ] HISTORY OF PRESENT ILLNESS: The patient is a 66-year-old male patient, a , who came to the Emergency Room, who was discharged from a [facility] yesterday. He was admitted there with COPD exacerbation and was discharged home with oxygen. Unfortunately, his oxygen tank was empty and the show host/hostess on arrival found him to be in severe respiratory distress and his oxygen saturation was extremely low and even after treatment, his oxygen saturation was only 70%. The patient is a heavy smoker, has been a smoker for almost 45 years and has a 95 pack year smoking history and apparently has been so short of breath that he could not smoke. His oxygen portable tank ran out yesterday. He has been on 3 L of oxygen continuously. He was sent to [facility] since the MD was on diversion; however, he has never been intubated for COPD exacerbation. He denied any travel, any specific ill contact other than being hospitalized patient and by the time he arrived here, he was in obvious respiratory distress, tachypneic, was barely able to walk, to speak even 2-3 words due to severe dyspnea, has been complaining of chills, fever, rhinorrhea, pharyngitis, nausea, myalgia, arthralgia and malaise and he reported that his symptoms seem to be worse the last couple of days. He was evaluated in the Emergency Room, was found to be positive for influenza B. His D-dimer was high and he underwent CT angio, which basically showed no evidence of pulmonary embolism; however, he has diffuse bilateral emphysematous changes with scattered infiltrates in both lower lobes and right middle lobe and was admitted with COPD exacerbation, acute hypoxic hypercapnic respiratory failure, pneumonia, and ____ influenza B. last pm he had an episode of VT so consult was called. He is currently dyspneic at rest with conversing. He denies chest pain. He does report orthopnea and says he has not slept more than a few hours in quite some time due to dyspnea. He reports occasional palpitations and a remote history of recurrent syncope. He denies edema. He was noted to have wide complex tachycardia last pm, onset after up to bedside commode. Arrhythmia lasted >2 minutes and was associated with increased dyspnea and chest discomfort.He has continued to be sob and requiring oxygen. It is felt to be in his best interest to be transferred to [facility] for higher lever of care and more cardiac investigation. Discharge Information Condition at Discharge: Stable Disposition/Orders: D/C to Another Facility Dischare Medications Current Medications Aspirin (Children'S Aspirin) 324 mg 1X ONCE PO Last administered on 07/22/17at 19:37; Start 07/22/17 at 19:45; Stop 07/22/17 at 19:46; Status DC Sodium Chloride 1,000 ml @ 100 mls/hr Q10H IV Last administered on 07/22/17at 19 :42; Start 07/22/17 at 19:00; Stop 07/23/17 at 04:59; Status DC Methylprednisolone Sodium Succinate (SOLU-Medrol 125MG VIAL) 125 mg 1X ONCE IV Last administered on 07/22/17at 19:38; Start 07/22/17 at 19:45; Stop 07/22/17 at 19:46; Status DC Ceftriaxone Sodium 1 gm/ Sodium Chloride 50 ml @ 100 mls/hr 1X ONCE IV ; Start 07/22/17 at 19:00; Stop 07/22/17 at 19:29; Status UNV Azithromycin (Zithromax) 500 mg 1X ONCE PO Last administered on 07/22/17at 19:44 ; Start 07/22/17 at 19:45; Stop 07/23/17 at 15:19; Status DC Albuterol/ Ipratropium (Duoneb) 3 ml 1X ONCE NEB Last administered on at 19:19; Start 07/22/17 at 19:00; Stop 07/22/17 at 19:33; Status DC Morphine Sulfate (Morphine 10mg Syringe) 10 mg 1X ONCE SQ Last administered on 07/22/17at 19:35; Start 07/22/17 at 19:45; Stop 07/23/17 at 15:09; Status DC Ceftriaxone Sodium (Rocephin) 1 gm STK-MED ONCE IV ; Start 07/22/17 at 19:29; Stop 07/22/17 at 19:30; Status DC Ceftriaxone Sodium (Rocephin) 1 gm 1X ONCE IVP Last administered on 07/22/17at 19:42; Start 07/22/17 at 19:45; Stop 07/22/17 at 19:46; Status DC Oseltamivir Phosphate (Tamiflu) 75 mg 1X ONCE PO Last administered on at 20:22; Start 07/22/17 at 20:30; Stop 07/22/17 at 20:31; Status DC Enoxaparin Sodium (Lovenox 80mg Syringe) 70 mg 1X ONCE SQ Last administered on 07/22/17at 20:24; Start 07/22/17 at 20:30; Stop 07/22/17 at 20:31; Status DC Enoxaparin Sodium (Lovenox 80mg Syringe) 80 mg STK-MED ONCE SQ ; Start 07/22/17 at 20:18; Stop 07/22/17 at 20:19; Status DC Ondansetron HCl (Zofran) 4 mg PRN Q4HRS PRN IV NAUSEA/VOMITING; Start 07/22/17 at 20:30; Stop 07/23/17 at 20:29; Status DC Albuterol/ Ipratropium (Duoneb) 3 ml RTQID NEB Last administered on 07/23/17at 20 :48; Start 07/23/17 at 08:00; Stop 07/24/17 at 07:59; Status DC Enoxaparin Sodium (Lovenox) 75 mg BID SQ ; Start 07/22/17 at 21:00; Stop 07/22/17 at 21:09; Status DC Aspirin (Children'S Aspirin) 81 mg DAILY PO Last administered on 07/25/17at 08:24 ; Start 07/23/17 at 09:00 Oseltamivir Phosphate (Tamiflu) 75 mg BID PO Last administered on 07/25/17at 08: 25; Start 07/22/17 at 21:00; Stop 07/27/17 at 20:59 Azithromycin (Zithromax) 250 mg DAILY PO Last administered on 07/25/17at 08:25; Start 07/23/17 at 09:00 Ceftriaxone Sodium 1 gm/ Sodium Chloride 50 ml @ 100 mls/hr DAILY IV ; Start at 09:00; Stop 07/23/17 at 09:00; Status DC Iohexol (Omnipaque 300 Mg/ml) 75 ml 1X ONCE IV Last administered on 07/22/17at 21:19; Start 07/22/17 at 21:00; Stop 07/22/17 at 21:01; Status DC Info (Do NOT chart on this entry -- for MONITORING) 1 each PRN DAILY PRN MC SEE COMMENTS; Start 07/22/17 at 20:45; Stop 07/24/17 at 20:44; Status DC Morphine Sulfate (Morphine 10mg Syringe) 10 mg PRN QID PRN SQ PAIN; Start at 21:00; Stop 07/23/17 at 15:09; Status DC Enoxaparin Sodium (Lovenox 80mg Syringe) 70 mg Q12HR SQ Last administered on 07/23/17at 09:21; Start 07/23/17 at 09:00; Stop 07/23/17 at 14:51; Status DC Lactobacillus Rhamnosus (Culturelle) 1 cap BID PO Last administered on at 08:24; Start 07/23/17 at 09:00 Ceftriaxone Sodium 1 gm/ Sodium Chloride 50 ml @ 100 mls/hr DAILY IV ; Start at 09:00; Status UNV Ceftriaxone Sodium (Rocephin) 1 gm Q24H IVP ; Start 07/23/17 at 20:00; Stop at 20:00; Status DC Alprazolam (Xanax) 0.25 mg PRN Q4HRS PRN PO ANXIETY / AGITATION Last administered on 07/25/17 14:44; Start 07/23/17 at 04:15 Enoxaparin Sodium (Lovenox) 40 mg DAILY SQ Last administered on 07/25/17 08:25 ; Start 07/24/17 at 09:00 Methylprednisolone Sodium Succinate (SOLU-Medrol 125MG VIAL) 125 mg 1X ONCE IV Last administered on 07/23/17 15:32; Start 07/23/17 at 15:00; Stop 07/23/17 at 15:02; Status DC Methylprednisolone Sodium Succinate (SOLU-Medrol 40MG VIAL) 60 mg Q8HRS IV Last administered on 07/25/17 14:53; Start 07/23/17 at 22:00 Albuterol Sulfate (Ventolin) 2.5 mg PRN Q2HR PRN NEB SHORTNESS OF BREATH; Start 07/23/17 at 15:00 Tamsulosin HCl (Flomax) 0.4 mg QHS PO Last administered on 07/24/17 20:21; Start 07/23/17 at 21:00 Montelukast Sodium (Singulair) 10 mg QHS PO Last administered on 07/24/17 20:21 ; Start 07/23/17 at 21:00 Budesonide (Pulmicort) 0.5 mg RTBID NEB Last administered on 07/25/17 09:31; Start 07/23/17 at 20:00 Oxycodone HCl (Roxicodone) 5 mg PRN Q4HRS PRN PO PAIN Last administered on 14:44; Start 07/23/17 at 15:00 Piperacillin Sod/ Tazobactam Sod 3.375 gm/Sodium Chloride 50 ml @ 100 mls/hr Q8H IV Last administered on 07/25/17 15:48; Start 07/23/17 at 15:30 Levofloxacin/ Dextrose 100 ml @ 100 mls/hr Q24H IV Last administered on 16:13; Start 07/23/17 at 16:00; Stop 07/24/17 at 12:06; Status DC Albuterol/ Ipratropium (Duoneb) 3 ml RTQID NEB Last administered on 07/25/17 09 :31; Start 07/24/17 at 08:00 Levofloxacin (Levaquin) 500 mg Q24H PO Last administered on 07/24/17at 17:07; Start 07/24/17 at 16:00 Sodium Chloride 150 ml @ As Directed STK-MED ONCE .ROUTE Last administered on 07/25/17at 08:41; Start 07/25/17 at 08:39; Stop 07/25/17 at 08:40; Status DC Amiodarone HCl 900 mg/Dextrose 518 ml @ 0 mls/hr CONT PRN IV SEE I/O RECORD Last administered on 07/25/17at 11:20; Start 07/25/17 at 10:30; Stop 07/25/17 at 11: 20; Status DC Amiodarone HCl 150 mg/Dextrose 103 ml @ 618 mls/hr 1X ONCE IVP Last administered on 07/25/17at 10:55; Start 07/25/17 at 10:15; Stop 07/25/17 at 10:24; Status DC Nicotine (Nicoderm Cq 21mg) 1 patch DAILY TD ; Start 07/25/17 at 10:15; Status UNV Active Scripts Active NICODERM CQ 21mg (Nicotine) 1 Each Patch.td24 1 Patch TP DAILY Amiodarone 900 mg/500 ml-D5w (Amiodarone HCl/D5w) 900 Mg/500 Ml Plast..bag 900 Mg IV DAILY 1 Days Flomax (Tamsulosin Hcl) 0.4 Mg Cap.er.24h 0.4 Mg PO QHS 7 Days Oxycodone Hcl 5 Mg Tablet 5 Mg PO PRN Q4HRS PRN 7 Days Tamiflu (Oseltamivir Phosphate) 75 Mg Capsule 75 Mg PO BID 5 Days Montelukast Sodium Tablet (Montelukast Sodium) 10 Mg Tablet 10 Mg PO QHS 7 Days Solu-Medrol 40 Mg Vial (Methylprednisolone Sod Succ/Pf) 40 Mg/1 Ml Vial 60 Mg IV Q8HRS 7 Days Duoneb 0.5-3(2.5) Mg/3 Ml (Albuterol/Ipratropium) 3 Ml Ampul.neb 3 Ml NEB RTQID 7 Days Culturelle (Lactobacillus Rhamnosus Gg) 1 Each Cap.sprink 1 Cap PO BID 7 Days Enoxaparin Sodium 40 Mg/0.4 Ml Disp.syrin 40 Mg SQ DAILY 7 Days Aspirin 81 Mg Tab.chew 81 Mg PO DAILY 7 Days Alprazolam 0.25 Mg Tablet 0.25 Mg PO PRN Q4HRS PRN 7 Days Albuterol Sulfate Neb Soln (Albuterol Sulfate) 2.5 Mg/3 Ml Vial.neb 2.5 Mg NEB PRN Q2HR PRN 7 Days Patient Instructions Patient Instuctions TRANSFER TO [facility] FOR HIGHER LEVER OF CARE AND FURTHER CARDIAC INVESTIGATION AND PULMONARY CONSULT. MARCELLA HERNANDEZ DO Jul 25, 2017 16:08
[2017-07-25] MEDS: levoFLOXacin 500 MG TABLET PO SCH (16:24)
== END 2017-07-25 16:44 | disposition short-term general hospital (02) | DRG 193 ==
LOC: ER 18:47 → ICU 20:00 → ER 21:40
PROVIDERS: ADMIT Internal Medicine; ATTEND Internal Medicine
DX: J10.00 Influenza due to other identified influenza virus with unspecified type of pneumonia (principal); J96.22 Acute and chronic respiratory failure with hypercapnia; J96.21 Acute and chronic respiratory failure with hypoxia; I47.2 Ventricular tachycardia; J44.1 Chronic obstructive pulmonary disease with (acute) exacerbation; J44.0 Chronic obstructive pulmonary disease with (acute) lower respiratory infection; I50.9 Heart failure, unspecified; I25.10 Atherosclerotic heart disease of native coronary artery without angina pectoris; F17.210 Nicotine dependence, cigarettes, uncomplicated; G89.29 Other chronic pain; I48.91 Unspecified atrial fibrillation; N40.1 Benign prostatic hyperplasia with lower urinary tract symptoms; Y95 Nosocomial condition; R35.1 Nocturia; Z79.82 Long term (current) use of aspirin; Z79.899 Other long term (current) drug therapy; Z99.81 Dependence on supplemental oxygen
CPT/HCPCS: 36415; 36600; 71045; 71275; 80048; 80053; 80076; 80307; 81001; 82553; 82803; 83690; 83735; 83880; 84443; 84484; 85025; 85027; 85379; 85610; 85730; 87040; 87641; 87804; 93005; 94640; 96361; 96372; 96374; 96375; G0103; J0282; J0456; J0696; J1650; J1956; J2270; J2543; J2920; J2930; J7620; J7626; Q9967; 99285-25; G0479; J7030

== ENCOUNTER 2017-08-08 15:08 | Inpatient (IN) | payer MEDICARE, OTHER ==
[~2017-08-08] VITALS: Ht 193 cm; Wt 66.7 kg
[~2017-08-08 15:08] MED LIST: ALBU2.5V5 NEB; ALPR0.254 PO; ASPI-630 PO; ENOX40DI3 SQ; GABA-586 PO; IPRA3AMP NEB; LACT1CAP19 PO; METH40VI IV; MONT10TA9 PO; NICO1PAT21 TP; OSEL75CA PO; OXYC10TA PO; OXYC5TAB95 PO; TAMS0.4C97 PO; [UNRECOGNIZED DRUG - CODE] IV
[2017-08-08] MEDS ORDERED: IPRATRPIUM/ALBUTEROL 0.5/2.5MG 3 ML NEBU. NEB ONE (15:45)
[2017-08-08] MEDS ORDERED: methylPREDNISolone SOD SUCC PF 125 MG/2 ML VIAL. IV ONE (15:45)
[2017-08-08] MEDS ORDERED: ALBUTEROL SULFATE 2.5 MG/3 ML NEBU. NEB ONE (15:45)
[2017-08-08] MEDS ORDERED: ASPIRIN 81 MG TAB.CHEW PO ONE (15:45)
[2017-08-08] MEDS ORDERED: IBUPROFEN 600 MG TABLET. PO ONE (15:45)
[2017-08-08] MEDS ORDERED: IV NORMAL SALINE 1,000ML 1,000 ML IV ONE ×2 (15:45→16:15)
[2017-08-08 15:47] LABS: BASO % 1 % (0-3); EOS % 1 % (0-3); HEMATOCRIT 39.7 % (39.0-53.0); HEMOGLOBIN 13.4 g/dL (13.0-17.5); LYMPH # 1.4 x10^3/uL (1.0-4.8); LYMPH % 16 % (24-48); MEAN CORPUSCULAR HEMOGLOBIN 32 pg (25-35); MEAN CORPUSCULAR HGB CONC 34 g/dL (31-37); MEAN CORPUSCULAR VOLUME 95 fL (79-100); MONO # 0.7 x10^3/uL (0.0-1.1); MONO % 8 % (0-9); NEUT # 6.6 x10^3uL (1.8-7.7); NEUT % 76 % (31-73); PLATELET COUNT 230 x10^3/uL (140-400); RED CELL DISTRIBUTION WIDTH 13.2 % (11.5-14.5); WHITE BLOOD COUNT 8.7 x10^3/uL (4.0-11.0)
--- NOTE | 2017-08-08 15:48 | RAD ---
Portable AP upright view CXR: Clinical indications: Shortness of breath. Comparison: July 22, 2017. Findings: Hyperinflation is seen consistent with COPD. No acute lung infiltrate or pleural effusion or pulmonary edema or lung mass or pneumothorax is seen. The heart size, pulmonary vasculature, mediastinum and both leana are unremarkable. Impression: No acute radiographic abnormality is seen. COPD.
[2017-08-08 16:06] LABS: ALBUMIN 2.9 g/dL (3.4-5.0); ALBUMIN/GLOBULIN RATIO 0.7 (1.0-1.7); CALCIUM 8.6 mg/dL (8.5-10.1); GFR 75.2; POTASSIUM 4.8 mmol/L (3.5-5.1); TOTAL BILIRUBIN 0.5 mg/dL (0.2-1.0); TOTAL PROTEIN 6.9 g/dL (6.4-8.2)
[2017-08-08] MEDS ORDERED: ACETAMINOPHEN 325 MG TABLET PO PRN (16:30)
[2017-08-08] MEDS ORDERED: NITROGLYCERIN SUBLINGUAL 0.4 MG BOTTLE OF 25. SL PRN (16:30)
[2017-08-08] MEDS ORDERED: ONDANSETRON PF 4 MG/2 ML VIAL. IV PRN (16:30)
[2017-08-08] MEDS ORDERED: MORPHINE SULFATE 2 MG/ML DISP.SYRIN. IV PRN (16:30)
[2017-08-08] MEDS ORDERED: ONDANSETRON PF 4 MG/2 ML VIAL. IV ONE (16:30)
--- NOTE | 2017-08-08 16:49 | EKG ---
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 RI6.01 Electronically Signed On 08-10-2017 11:48:11 ENVIRONMENTAL INSPECTOR by Terrance Mcrae
[2017-08-08] MEDS ORDERED: NORMAL SALINE IV ONE (17:00)
--- NOTE | 2017-08-08 17:12 | PHYS DOC ---
Past History Past Medical History: CAD, CHF, COPD Past Surgical History: Other Smoking: Cigarettes Alcohol Use: None Drug Use: None Adult General Chief Complaint Chief Complaint: SHORTNESS OF BREATH HPI HPI Patient is a 66 year old male who presents with shortness of breath. Patient reports at least one week history of cough productive of yellow sputum, wheezing , shortness of breath at rest and with exertion, chest tightness with coughing. Denies fevers or chills, sore throat, nasal congestion, vomiting or diarrhea. History of COPD just recently placed on home oxygen which he uses intermittently on an as-needed basis. He does continue to smoke. Denies cardiac history. He was admitted here in early July and also since that time admitted at the [facility]. States he was supposed to follow-up with a warehouse analyst but has not yet had an appointment. Review of Systems Review of Systems Constitutional: Denies fever or chills Eyes: Denies change in visual acuity HENT: Denies nasal congestion or sore throat Respiratory: Reports cough and shortness of breath Cardiovascular: Denies chest pain or edema GI: Denies abdominal pain, nausea, vomiting, or diarrhea : Denies dysuria or hematuria Musculoskeletal: Denies back pain or joint pain Integument: Denies rash or skin lesions Neurologic: Denies headache, focal weakness or sensory changes All other systems were reviewed and found to be within normal limits, except as documented in this note. Current Medications Current Medications Current Medications Medications (Trade) Dose Ordered Sig/Ingrid Start Time Stop Time Status Last Admin Dose Admin Acetaminophen (Tylenol) 650 mg PRN Q4HRS PRN 08/08/17 16:30 08/09/17 16:29 Albuterol Sulfate (Ventolin) 5 mg 1X ONCE 08/08/17 15:45 08/08/17 15:46 DC 08/08/17 16:00 5 MG Albuterol/ Ipratropium (Duoneb) 3 ml RTQID 08/08/17 20:00 08/09/17 19:59 Aspirin (Children'S Aspirin) 324 mg 1X ONCE 08/08/17 15:45 08/08/17 15:46 DC 08/08/17 16:00 324 MG Ibuprofen (Motrin) 600 mg 1X ONCE 08/08/17 15:45 08/08/17 15:45 DC Methylprednisolone Sodium Succinate (SOLU-Medrol 125MG VIAL) 125 mg 1X ONCE 08/08/17 15:45 08/08/17 15:46 DC 08/08/17 16:00 125 MG Morphine Sulfate (Morphine 2mg Syringe) 2 mg PRN Q2HR PRN 08/08/17 16:30 08/09/17 16:29 Nitroglycerin (Nitrostat) 0.4 mg PRN Q5MIN PRN 08/08/17 16:30 08/09/17 16:29 Ondansetron HCl (Zofran) 4 mg PRN Q4HRS PRN 08/08/17 16:30 08/09/17 16:29 Sodium Chloride 2,610 ml @ 2,610 mls/hr Q1H 08/08/17 16:53 UNV Allergies Allergies Allergies Coded Allergies Type Severity Reaction Last Updated Verified No Known Drug Allergies 07/22/17 No Physical Exam Physical Exam Constitutional: Well developed, well nourished, moderate distress. HENT: Normocephalic, atraumatic, bilateral external ears normal, oropharynx moist, nose normal. Eyes: conjunctiva normal, no discharge. Neck: supple, no stridor. Cardiovascular: tachycardic, regular, no murmurs, no edema. Lungs & Thorax: tight throughout, expiratory wheezing, moderate respiratory distress. Abdomen: soft, nontender, nondistended. Skin: Warm, dry, no erythema, no rash. Back: No tenderness. Extremities: No tenderness, no edema. no calf tenderness or swelling. Neurologic: Alert and oriented X 3, no focal deficits noted. Psychologic: Affect normal, judgement normal, mood normal. Current Patient Data Vital Signs Vital Signs Date Time Temp Pulse Resp B/P (MAP) Pulse Ox O2 Delivery O2 Flow Rate FiO2 08/08/17 15:08 98.4 114 22 88 Room Air Lab Results Laboratory Tests Test 08/08/17 15:30 White Blood Count 8.7 x10^3/uL (4.0-11.0) Red Blood Count 4.20 x10^6/uL (4.30-5.70) L Hemoglobin 13.4 g/dL (13.0-17.5) Hematocrit 39.7 % (39.0-53.0) Mean Corpuscular Volume 95 fL (79-100) Mean Corpuscular Hemoglobin 32 pg (25-35) Mean Corpuscular Hemoglobin Concent 34 g/dL (31-37) Red Cell Distribution Width 13.2 % (11.5-14.5) Platelet Count 230 x10^3/uL (140-400) Neutrophils (%) (Auto) 76 % (31-73) H Lymphocytes (%) (Auto) 16 % (24-48) L Monocytes (%) (Auto) 8 % (0-9) Eosinophils (%) (Auto) 1 % (0-3) Basophils (%) (Auto) 1 % (0-3) Neutrophils # (Auto) 6.6 x10^3uL (1.8-7.7) Lymphocytes # (Auto) 1.4 x10^3/uL (1.0-4.8) Monocytes # (Auto) 0.7 x10^3/uL (0.0-1.1) Eosinophils # (Auto) 0.0 x10^3/uL (0.0-0.7) Basophils # (Auto) 0.0 x10^3/uL (0.0-0.2) Prothrombin Time 10.6 SEC (9.4-11.4) Prothrombin Time INR 1.0 (0.9-1.1) Sodium Level 138 mmol/L (136-145) Potassium Level 4.8 mmol/L (3.5-5.1) Chloride Level 98 mmol/L (98-107) Carbon Dioxide Level 37 mmol/L (21-32) H Anion Gap 3 (6-14) L Blood Urea Nitrogen 16 mg/dL (8-26) Creatinine 1.0 mg/dL (0.7-1.3) Estimated GFR (Cockcroft-Gault) 75.2 BUN/Creatinine Ratio 16 (6-20) Glucose Level 140 mg/dL (70-99) H Calcium Level 8.6 mg/dL (8.5-10.1) Total Bilirubin 0.5 mg/dL (0.2-1.0) Aspartate Amino Transferase (AST) 18 U/L (15-37) Alanine Aminotransferase (ALT) 29 U/L (16-63) Alkaline Phosphatase 68 U/L (46-116) Troponin I Quantitative 0.226 ng/mL (0-0.055) H MX-Lli-U-Type Natriuretic Peptide 2621 pg/mL (0-124) H Total Protein 6.9 g/dL (6.4-8.2) Albumin 2.9 g/dL (3.4-5.0) L Albumin/Globulin Ratio 0.7 (1.0-1.7) L EKG EKG Interpreted by me: Normal sinus rhythm rate 82, no acute ST or T wave changes, normal intervals, no ectopy, there is some motion artifact present[] Radiology/Procedures Radiology/Procedures PROCEDURE: CHEST AP ONLY Portable AP upright view CXR: Clinical indications: Shortness of breath. Comparison: July 22, 2017. Findings: Hyperinflation is seen consistent with COPD. No acute lung infiltrate or pleural effusion or pulmonary edema or lung mass or pneumothorax is seen. The heart size, pulmonary vasculature, mediastinum and both leana are unremarkable. Impression: No acute radiographic abnormality is seen. COPD. DICTATED AND SIGNED BY: ROHIT CHANG MD DATE: 08/08/17 1545 [] Course & Med Decision Making Course & Med Decision Making Pertinent Labs and Imaging studies reviewed. (See chart for details) The patient presents with COPD exacerbation. Room air oxygen sat mid to high 80s , placed on oxygen by nasal cannula. Administered DuoNeb and albuterol treatments, Solu-Medrol, aspirin. Tachycardic, obtained lactic acid and blood cultures and administered IV fluids per sepsis protocol. Obtained labs, EKG, chest x-ray. Troponin elevated without evidence of STEMI on chest x-ray. No ongoing chest pain, suspect likely related to underlying illness. I discussed with Neli, cardiology nurse practitioner, recommends okay to keep [facility] for now, they will consult, we will obtain serial troponin and defer heparin administration at this time. No evidence of pneumonia on chest x-ray, will give antibiotics for bronchitis. Recommend admission to the hospital for further evaluation and treatment. The patient agrees with plan of care. Discussed with Dr. Carlos who agrees to admit to inpatient status. The patient is being admitted in guarded condition. [] Dragon Disclaimer Dragon Disclaimer This electronic medical record was generated, in whole or in part, using a voice recognition dictation system. Departure Departure: Impression: Primary Impression: COPD exacerbation Additional Impression: Elevated troponin Disposition: ADMITTED INPATIENT Admitting Physician: Lorri Carlos Condition: GUARDED Referrals: PCP,NO (PCP) Problem Qualifiers ELISA COFFEY MD Aug 08, 2017 17:12
[2017-08-08] MEDS ORDERED: cefTRIAXone IV Push 1 GM VIAL. IVP ONE (17:30)
[2017-08-08] MEDS ORDERED: MORPHINE SULFATE 4 MG/ML DISP.SYRIN. IV PRN (18:43)
[2017-08-08 18:59] LABS: INFLUENZA A PATIENT NEGATIVE (NEGATIVE); INFLUENZA B PATIENT NEGATIVE (NEGATIVE)
[2017-08-08 19:10] VITALS: BP 106/59
[2017-08-08] MEDS ORDERED: IPRA3AMP NEB (19:42)
[2017-08-08] MEDS ORDERED: ALBU1.25 NEB (19:42)
[2017-08-08] MEDS ORDERED: ALPR0.254 PO (19:42)
[2017-08-08] MEDS ORDERED: MONT10TA6 PO (19:42)
[2017-08-08] MEDS ORDERED: OXYC10TA PO (19:42)
[2017-08-08] MEDS ORDERED: TAMS0.4C2 PO (19:42)
[2017-08-08] MEDS ORDERED: NICO1PAT21 TP (19:42)
[2017-08-08] MEDS ORDERED: IPRATRPIUM/ALBUTEROL 0.5/2.5MG 3 ML NEBU. NEB SCH (20:00)
[2017-08-08 20:05] VITALS: BP 100/55
[2017-08-08] MEDS: ALPRAZolam 0.25 MG TABLET PO PRN (21:09)
[2017-08-08] MEDS: ENOXAPARIN 40 MG/0.4 ML DISP.SYRIN. SQ SCH (21:09)
[2017-08-08] MEDS: oxyCODONE ER 10 MG TAB.ER.12H PO PRN (21:09)
[2017-08-08] MEDS: MONTELUKAST 10 MG TABLET. PO SCH (21:09)
[2017-08-08] MEDS: TAMSULOSIN 0.4 MG CAP.ER.24H. PO SCH (21:09)
[2017-08-08] MEDS: NICOTINE 21MG PATCH. TD SCH (21:10)
[2017-08-08 21:25] VITALS: BP 110/76
[2017-08-08] MEDS: IPRATRPIUM/ALBUTEROL 0.5/2.5MG 3 ML NEBU. NEB SCH (21:28)
[2017-08-08 22:05] VITALS: BP 111/63
[2017-08-08 23:05] VITALS: BP 102/54
[2017-08-08 23:35] VITALS: BP 104/51
[2017-08-09] VITALS (14 sets, daily range): BP systolic 15–131; BP diastolic 46–78
[2017-08-09 04:11] LABS: BASO % 0 % (0-3); EOS % 0 % (0-3); HEMATOCRIT 36.9 % (39.0-53.0); HEMOGLOBIN 12.4 g/dL (13.0-17.5); LYMPH # 0.3 x10^3/uL (1.0-4.8); LYMPH % 5 % (24-48); MEAN CORPUSCULAR HEMOGLOBIN 32 pg (25-35); MEAN CORPUSCULAR HGB CONC 34 g/dL (31-37); MEAN CORPUSCULAR VOLUME 96 fL (79-100); MONO # 0.1 x10^3/uL (0.0-1.1); MONO % 2 % (0-9); NEUT # 5.1 x10^3uL (1.8-7.7); NEUT % 93 % (31-73); PLATELET COUNT 186 x10^3/uL (140-400); RED BLOOD COUNT 3.84 x10^6/uL (4.30-5.70); RED CELL DISTRIBUTION WIDTH 13.1 % (11.5-14.5); WHITE BLOOD COUNT 5.5 x10^3/uL (4.0-11.0)
[2017-08-09 04:44] LABS: CALCIUM 8.4 mg/dL (8.5-10.1); CREATININE 0.9 mg/dL (0.7-1.3); POTASSIUM 4.7 mmol/L (3.5-5.1)
[2017-08-09] MEDS: IPRATRPIUM/ALBUTEROL 0.5/2.5MG 3 ML NEBU. NEB SCH ×4 (06:15→21:20)
[2017-08-09] MEDS: ALPRAZolam 0.25 MG TABLET PO PRN ×3 (06:22→20:17)
--- NOTE | 2017-08-09 08:28 | EKG ---
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
[2017-08-09] MEDS: oxyCODONE ER 10 MG TAB.ER.12H PO PRN ×2 (08:29→20:17)
[2017-08-09] MEDS: NICOTINE 21MG PATCH. TD SCH (08:30)
--- NOTE | 2017-08-09 09:13 | PDOC2 ---
CONSULT Date of Admission DATE: 08/09/17 TIME: 09:01 Reason for Consult: elevated troponin Problem List Problems Medical Problems: (1) COPD exacerbation Status: Acute (2) Elevated troponin Status: Acute History of Present Illness Mr Nash is a 66 year old male with history of COPD who was recently seen in the hospital for respiratory failure due to influenza, copd exacerbation and pneumonia. He was noted to have an approximately 2 minute run of ventricular tachycardia and then developed atrial fibrillation with RVR. He was transferred to [facility] for pulmonary and ID evaluation. Echocardiogram at that time was unremarkable and he had no further ventricular arrhythmias. On discharge he was to follow up with the [facility] for cardiology follow up, event monitoring and possible stress testing. He reports that he did follow up upon which time he underwent a 6 minute walk test, and was given oxygen, He presented back to the ED yesterday with complaints of again increasing shortness of breath. He reports at least one week history of cough productive of yellow sputum, wheezing, and increased shortness of breath at rest and with exertion. He complains of chest tightness intermittently with associated back pain. He believes the chest discomfort is precipitated by the back discomfort. He reports it is unrelated to coughing and occurs both with exertion and at rest. He denies fevers or chills, sore throat, nasal congestion, vomiting or diarrhea. He does continue to smoke. Past Medical History COPD, bilateral cataract, enlarged prostate, atrial fibrillation, VT Echo 07/22/17 The left ventricular systolic function is normal and the ejection fraction is within normal range. EF 65% There is normal LV segmental wall motion. Past Surgical History cataract extraction in 1 eye and is scheduled for the other, multiple prostate biopsies, nasal surgery, back surgery Family History No history of premature coronary disease Social History He is , has no children. He is a heavy smoker, smoked 2-1/2 packs a day for almost 45 years, no smoking for 1 week. Does not drink alcohol or use any recreational drugs. He is retired from the [employer]. Current Medications Current Medications Albuterol/ Ipratropium (Duoneb) 3 ml 1X ONCE NEB Last administered on at 15:45; Start 08/08/17 at 15:45; Stop 08/08/17 at 15:46; Status DC Albuterol Sulfate (Ventolin) 5 mg 1X ONCE NEB Last administered on 08/08/17at 16:00; Start 08/08/17 at 15:45; Stop 08/08/17 at 15:46; Status DC Methylprednisolone Sodium Succinate (SOLU-Medrol 125MG VIAL) 125 mg 1X ONCE IV Last administered on 08/08/17at 16:00; Start 08/08/17 at 15:45; Stop 08/08/17 at 15:46; Status DC Sodium Chloride 1,000 ml @ 1,000 mls/hr 1X ONCE IV Last administered on at 15:45; Start 08/08/17 at 15:45; Stop 08/08/17 at 16:44; Status DC Aspirin (Children'S Aspirin) 324 mg 1X ONCE PO Last administered on 08/08/17at 16:00; Start 08/08/17 at 15:45; Stop 08/08/17 at 15:46; Status DC Ibuprofen (Motrin) 600 mg 1X ONCE PO ; Start 08/08/17 at 15:45; Stop 08/08/17 at 15:45; Status DC Sodium Chloride 1,000 ml @ 1,000 mls/hr 1X ONCE IV ; Start 08/08/17 at 16:15; Stop 08/08/17 at 16:30; Status DC Ondansetron HCl (Zofran) 4 mg 1X ONCE IV ; Start 08/08/17 at 16:30; Stop at 16:30; Status DC Ondansetron HCl (Zofran) 4 mg PRN Q4HRS PRN IV NAUSEA/VOMITING; Start 08/08/17 at 16:30; Stop 08/09/17 at 16:29 Morphine Sulfate (Morphine 2mg Syringe) 2 mg PRN Q2HR PRN IV PAIN; Start at 16:30; Stop 08/08/17 at 18:43; Status DC Acetaminophen (Tylenol) 650 mg PRN Q4HRS PRN PO FEVER; Start 08/08/17 at 16:30 ; Stop 08/09/17 at 16:29 Nitroglycerin (Nitrostat) 0.4 mg PRN Q5MIN PRN SL CHEST PAIN; Start 08/08/17 at 16:30; Stop 08/09/17 at 16:29 Albuterol/ Ipratropium (Duoneb) 3 ml RTQID NEB ; Start 08/08/17 at 20:00; Stop 08/08/17 at 20:40; Status DC Sodium Chloride 2,610 ml @ 2,610 mls/hr Q1H ONCE IV Last administered on at 18:34; Start 08/08/17 at 17:00; Stop 08/08/17 at 17:59; Status DC Ceftriaxone Sodium 1 gm/ Sodium Chloride 50 ml @ 100 mls/hr 1X ONCE IV ; Start 08/08/17 at 17:15; Stop 08/08/17 at 17:44; Status UNV Ceftriaxone Sodium (Rocephin) 1 gm 1X ONCE IVP Last administered on 08/08/17at 17:30; Start 08/08/17 at 17:30; Stop 08/08/17 at 17:31; Status DC Morphine Sulfate (Morphine 4mg Syringe) 2 mg PRN Q2HR PRN IV PAIN; Start at 18:43; Stop 08/09/17 at 16:29 Nicotine (Nicoderm Cq 21mg) 1 patch DAILY TD Last administered on 08/09/17at 08: 30; Start 08/08/17 at 21:00 Enoxaparin Sodium (Lovenox) 40 mg Q24H SQ Last administered on 08/08/17at 21:09 ; Start 08/08/17 at 21:00 Alprazolam (Xanax) 0.25 mg PRN Q4HRS PRN PO ANXIETY Last administered on at 06:22; Start 08/08/17 at 20:30 Albuterol/ Ipratropium (Duoneb) 3 ml RTQID NEB Last administered on 08/09/17at 06:15; Start 08/08/17 at 21:00 Montelukast Sodium (Singulair) 10 mg HS PO Last administered on 08/08/17at 21:09 ; Start 08/08/17 at 21:00 Tamsulosin HCl (Flomax) 0.4 mg HS PO Last administered on 08/08/17at 21:09; Start 08/08/17 at 21:00 Oxycodone HCl (OxyCONTIN) 10 mg PRN BID PRN PO PAIN Last administered on at 08:29; Start 08/08/17 at 21:00 Active Scripts Active Reported Tamsulosin Hcl 0.4 Mg Cap.er.24h 1 Cap PO HS LAST DOSE GIVEN: DATE: TIME: NEXT DOSE DUE: DATE: TIME: Oxycodone Hcl 10 Mg Tablet 1 Tab PO BID PRN LAST DOSE GIVEN: DATE: TIME: NEXT DOSE DUE: DATE: TIME: NICODERM CQ 21mg (Nicotine) 1 Each Patch.td24 1 Patch TP DAILY LAST DOSE GIVEN: DATE: TIME: NEXT DOSE DUE: DATE: TIME: Singulair Tablet (Montelukast Sodium) 10 Mg Tablet 10 Mg PO HS LAST DOSE GIVEN: DATE: TIME: NEXT DOSE DUE: DATE: TIME: Duoneb 0.5-3(2.5) Mg/3 Ml (Albuterol/Ipratropium) 3 Ml Ampul.neb 3 Ml NEB QID LAST DOSE GIVEN: DATE: TIME: NEXT DOSE DUE: DATE: TIME: Alprazolam 0.25 Mg Tablet 1 Tab PO Q4HRS PRN LAST DOSE GIVEN: DATE: TIME: NEXT DOSE DUE: DATE: TIME: Albuterol Sulfate Neb Soln (Albuterol Sulfate) 1.25 Mg/3 Ml Vial.neb 1 Vial NEB Q4HRS PRN LAST DOSE GIVEN: DATE: TIME: NEXT DOSE DUE: DATE: TIME: Allergies: Coded Allergies: No Known Drug Allergies (Unverified , 07/22/17) Review of System as per HPI General: Alert, Oriented X3, Cooperative, mild distress HEENT: Atraumatic, EOMI Lungs: Other (bilateral expiratory wheezing) Heart: Regular rate, Normal S1, Normal S2 Abdomen: Normal bowel sounds, Soft Extremities: No cyanosis, Normal pulses Neuro: Normal speech, Strength at 5/5 X4 ext Psych/Mental Status: Mental status NL, Mood NL VITALS Vital Signs Date Time Temp Pulse Resp B/P (MAP) Pulse Ox O2 Delivery O2 Flow Rate FiO2 08/09/17 08:16 Nasal Cannula 3.0 08/09/17 06:40 86 20 106/66 (79) 97 08/09/17 05:35 98.6 Labs Laboratory Tests Test 08/08/17 15:30 08/08/17 17:33 08/08/17 18:16 08/08/17 21:55 White Blood Count 8.7 x10^3/uL (4.0-11.0) Red Blood Count 4.20 x10^6/uL (4.30-5.70) Hemoglobin 13.4 g/dL (13.0-17.5) Hematocrit 39.7 % (39.0-53.0) Mean Corpuscular Volume 95 fL (79-100) Mean Corpuscular Hemoglobin 32 pg (25-35) Mean Corpuscular Hemoglobin Concent 34 g/dL (31-37) Red Cell Distribution Width 13.2 % (11.5-14.5) Platelet Count 230 x10^3/uL (140-400) Neutrophils (%) (Auto) 76 % (31-73) Lymphocytes (%) (Auto) 16 % (24-48) Monocytes (%) (Auto) 8 % (0-9) Eosinophils (%) (Auto) 1 % (0-3) Basophils (%) (Auto) 1 % (0-3) Neutrophils # (Auto) 6.6 x10^3uL (1.8-7.7) Lymphocytes # (Auto) 1.4 x10^3/uL (1.0-4.8) Monocytes # (Auto) 0.7 x10^3/uL (0.0-1.1) Eosinophils # (Auto) 0.0 x10^3/uL (0.0-0.7) Basophils # (Auto) 0.0 x10^3/uL (0.0-0.2) Prothrombin Time 10.6 SEC (9.4-11.4) Prothromb Time International Ratio 1.0 (0.9-1.1) Sodium Level 138 mmol/L (136-145) Potassium Level 4.8 mmol/L (3.5-5.1) Chloride Level 98 mmol/L (98-107) Carbon Dioxide Level 37 mmol/L (21-32) Anion Gap 3 (6-14) Blood Urea Nitrogen 16 mg/dL (8-26) Creatinine 1.0 mg/dL (0.7-1.3) Estimated GFR (Cockcroft-Gault) 75.2 BUN/Creatinine Ratio 16 (6-20) Glucose Level 140 mg/dL (70-99) Calcium Level 8.6 mg/dL (8.5-10.1) Total Bilirubin 0.5 mg/dL (0.2-1.0) Aspartate Amino Transf (AST/SGOT) 18 U/L (15-37) Alanine Aminotransferase (ALT/SGPT) 29 U/L (16-63) Alkaline Phosphatase 68 U/L (46-116) Troponin I Quantitative 0.226 ng/mL (0-0.055) 0.128 ng/mL (0-0.055) ND-Xob-C-Type Natriuretic Peptide 2621 pg/mL (0-124) Total Protein 6.9 g/dL (6.4-8.2) Albumin 2.9 g/dL (3.4-5.0) Albumin/Globulin Ratio 0.7 (1.0-1.7) Lactic Acid Level 1.6 mmol/L (0.4-2.0) Influenza Type A (Rapid) Negative (NEGATIVE) Influenza Type B (Rapid) Negative (NEGATIVE) Test 08/09/17 03:40 White Blood Count 5.5 x10^3/uL (4.0-11.0) Red Blood Count 3.84 x10^6/uL (4.30-5.70) Hemoglobin 12.4 g/dL (13.0-17.5) Hematocrit 36.9 % (39.0-53.0) Mean Corpuscular Volume 96 fL (79-100) Mean Corpuscular Hemoglobin 32 pg (25-35) Mean Corpuscular Hemoglobin Concent 34 g/dL (31-37) Red Cell Distribution Width 13.1 % (11.5-14.5) Platelet Count 186 x10^3/uL (140-400) Neutrophils (%) (Auto) 93 % (31-73) Lymphocytes (%) (Auto) 5 % (24-48) Monocytes (%) (Auto) 2 % (0-9) Eosinophils (%) (Auto) 0 % (0-3) Basophils (%) (Auto) 0 % (0-3) Neutrophils # (Auto) 5.1 x10^3uL (1.8-7.7) Lymphocytes # (Auto) 0.3 x10^3/uL (1.0-4.8) Monocytes # (Auto) 0.1 x10^3/uL (0.0-1.1) Eosinophils # (Auto) 0.0 x10^3/uL (0.0-0.7) Basophils # (Auto) 0.0 x10^3/uL (0.0-0.2) Sodium Level 140 mmol/L (136-145) Potassium Level 4.7 mmol/L (3.5-5.1) Chloride Level 102 mmol/L (98-107) Carbon Dioxide Level 35 mmol/L (21-32) Anion Gap 3 (6-14) Blood Urea Nitrogen 15 mg/dL (8-26) Creatinine 0.9 mg/dL (0.7-1.3) Estimated GFR (Cockcroft-Gault) 85.0 Glucose Level 225 mg/dL (70-99) Calcium Level 8.4 mg/dL (8.5-10.1) Magnesium Level 2.2 mg/dL (1.8-2.4) Troponin I Quantitative 0.081 ng/mL (0-0.055) Images CXR - Impression: No acute radiographic abnormality is seen. COPD. Assessment/Plan 1. troponin elevation - mild, likely demand related. Echo WNL this month. In light of episode of ventricular tachycardia that occurred during last admission and complaints of chest pain, suggest cardiac cath when he can comfortably lie flat. Plan to transfer tomorrow or for cath if he is agreeable. 2. Ventricular tachycardia - no new observed 3. atrial fibrillation with RVR - remains SR 4. COPD exacerbation - mgmt per PCP 5. tobaccoism - cessation encouraged Problems: ALENA COOLEY APRN Aug 09, 2017 09:13
[2017-08-09 11:11] LABS: BGAS PH 7.41 (7.35-7.46)
[2017-08-09] MEDS ORDERED: DILT120C80 PO (12:24)
[2017-08-09] MEDS ORDERED: PRED-220 PO (12:24)
[2017-08-09] MEDS ORDERED: LEVO25TA4 PO (12:24)
--- NOTE | 2017-08-09 14:21 | HP ---
ADMIT DATE: 08/08/2017 REASON FOR ADMISSION: Shortness of breath, hypoxia, elevated troponin. HISTORY OF PRESENT ILLNESS: This is a 66-year-old male who has been progressively short of breath, which has been intermittent over the last 6 months, but now has become quite troublesome with coughing up sputum, and requiring oxygen at home. He continues to smoke. He was also recently admitted not too long ago and was transferred to [place] and was supposed to get a catheterization by the [facility], but they declined and did not do it. He had been transferred down to [place] after a 2-minute run of ventricular tachycardia, then AFib with RVR. PAST MEDICAL HISTORY: COPD, heavy tobacco use, history of ventricular tachycardia, history of AFib with RVR. PAST SURGICAL HISTORY: Cataract extraction, prostate biopsies, nasal surgery and back surgery. SOCIAL HISTORY: He is , has no children. Was a heavy smoker, 2-1/2 packs a day, decreased to 1 pack recently and is down to, what he says, less than 1 pack per day, but has not smoked much in the last week. No alcohol. 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 REVIEW OF SYSTEMS: As per HPI. Positive short of breath with exertion. Positive intermittent chest pain. Positive chills, slight fever. OBJECTIVE: VITAL SIGNS: Blood pressure 104/55, pulse 91, temperature 98.5, pulse ox is 96% on 2 liters. Height 76 inches, weight 147 pounds. GENERAL: Debilitated looking 66-year-old who is slightly short of breath with talking. His color is greyish. HEENT: His hearing is normal. Eyes were clear. Nose patent. Throat clear. NECK: Supple without adenopathy. LUNGS: With diffuse wheezes. CARDIOVASCULAR: Regular rhythm and rate. ABDOMEN: Soft, nontender. EXTREMITIES: Without edema. LABORATORY DATA: White count is normal, hemoglobin 12.4, hematocrit 36.9. ABG, pCO2 of 49, pO2 is 99 with oxygen. Influenza was negative. Chemistry profile, his troponin was 0.226, 0.128, 0.081. ASSESSMENT: 1. Acute hypercapnic respiratory failure. 2. Chronic obstructive pulmonary disease. 3. Heavy tobacco abuse. 4. Elevated troponin. Echo was normal. 5. Ventricular tachycardia. 6. Atrial fibrillation with rapid ventricular response in sinus rhythm. 7. Tobacco use disorder. PLAN: Cardiology still feels he needs a cardiac catheterization. We will try to improve his lung status and will possibly transfer tomorrow for cath. MARCELLA HERNANDEZ DO DR: EMELIA/jeancarlos JOB#: [id number] / [id number]
[2017-08-09] MEDS: ENOXAPARIN 40 MG/0.4 ML DISP.SYRIN. SQ SCH (20:17)
[2017-08-09] MEDS: MONTELUKAST 10 MG TABLET. PO SCH (20:17)
[2017-08-09] MEDS: TAMSULOSIN 0.4 MG CAP.ER.24H. PO SCH (20:17)
[2017-08-10] VITALS (9 sets, daily range): BP systolic 103–124; BP diastolic 56–78
[2017-08-10] MEDS: ALPRAZolam 0.25 MG TABLET PO PRN ×5 (00:23→16:42)
[2017-08-10] MEDS ORDERED: LEVOTHYROXINE 25 MCG TABLET. PO SCH (06:00)
[2017-08-10 07:16] LABS: BASO % 0 % (0-3); EOS % 0 % (0-3); HEMATOCRIT 33.6 % (39.0-53.0); HEMOGLOBIN 11.2 g/dL (13.0-17.5); LYMPH # 1.7 x10^3/uL (1.0-4.8); LYMPH % 18 % (24-48); MEAN CORPUSCULAR HEMOGLOBIN 32 pg (25-35); MEAN CORPUSCULAR HGB CONC 33 g/dL (31-37); MEAN CORPUSCULAR VOLUME 96 fL (79-100); MONO # 0.5 x10^3/uL (0.0-1.1); MONO % 5 % (0-9); NEUT # 7.1 x10^3uL (1.8-7.7); NEUT % 77 % (31-73); PLATELET COUNT 142 x10^3/uL (140-400); RED CELL DISTRIBUTION WIDTH 13.3 % (11.5-14.5); WHITE BLOOD COUNT 9.3 x10^3/uL (4.0-11.0)
[2017-08-10 07:17] LABS: ALBUMIN 2.5 g/dL (3.4-5.0); ALBUMIN/GLOBULIN RATIO 0.8 (1.0-1.7); CALCIUM 8.1 mg/dL (8.5-10.1); CREATININE 0.9 mg/dL (0.7-1.3); MAGNESIUM 2.1 mg/dL (1.8-2.4); POTASSIUM 4.6 mmol/L (3.5-5.1); TOTAL BILIRUBIN 0.3 mg/dL (0.2-1.0); TOTAL PROTEIN 5.8 g/dL (6.4-8.2)
[2017-08-10] MEDS: oxyCODONE ER 10 MG TAB.ER.12H PO PRN (07:38)
[2017-08-10] MEDS: NICOTINE 21MG PATCH. TD SCH (07:38)
[2017-08-10] MEDS ORDERED: predniSONE 10 MG TABLET PO SCH (09:00)
[2017-08-10] MEDS: IPRATRPIUM/ALBUTEROL 0.5/2.5MG 3 ML NEBU. NEB SCH ×3 (09:30→15:12)
--- NOTE | 2017-08-10 10:31 | PDOC ---
ALENA COOLEY [employer] DISPATCHER 08/10/17 1031: PROGRESS NOTES Diagnosis Problem Problems Medical Problems: (1) COPD exacerbation Status: Acute (2) Elevated troponin Status: Acute Assessment Problems Medical Problems: (1) COPD exacerbation Status: Acute (2) Elevated troponin Status: Acute 1. troponin elevation - mild, likely demand related. Echo WNL this month. In light of episode of ventricular tachycardia that occurred during last admission (>2minutes) and recurrent short salvos as well as complaints of chest pain, suggest cardiac cath tomorrow. 2. Ventricular tachycardia - 9 beats today Keep k+ and mg+ WNL. Cath tomorrow. Consider resuming beta jessika and monitor for increased bronchospasm. 3. atrial fibrillation with RVR - remains SR, no reoccurrence of atrial fibrillation. 4. COPD exacerbation - mgmt per PCP, will need pulmonary follow up outpatient. 5. tobaccoism - cessation encouraged Problems: Subjective feeling better though he still appears easily out of breath, denies orthopnea or PND. No chest pain. no palpitations. Objective Vital Signs Date Time Temp Pulse Resp B/P (MAP) Pulse Ox O2 Delivery O2 Flow Rate FiO2 08/10/17 09:40 97 Nasal Cannula 2.0 08/10/17 09:14 90 08/10/17 07:48 97.4 08/10/17 06:39 18 119/78 (92) Intake and Output 08/10/17 07:00 Intake Total 780 ml Output Total 1300 ml Balance -520 ml Intake Oral 780 ml Output Urine Total 1300 ml # Bowel Movements 1 Abdomen: Normal bowel sounds, Soft, No tenderness Heart: Regular rate, Normal S1, Normal S2 Extremities: No cyanosis, No edema, Normal pulses General: Alert, Oriented X3, Cooperative, mild distress Lungs: Other (decreased with occasional expiratory wheeze) Neuro: Normal speech, Strength at 5/5 X4 ext Psych/Mental Status: Mental status NL, Mood NL Review of Relevant I have reviewed the following items gaurav (where applicable) has been applied. Labs Laboratory Tests Test 08/08/17 15:30 08/08/17 17:33 08/08/17 18:16 08/08/17 19:20 White Blood Count 8.7 x10^3/uL (4.0-11.0) Red Blood Count 4.20 x10^6/uL (4.30-5.70) Hemoglobin 13.4 g/dL (13.0-17.5) Hematocrit 39.7 % (39.0-53.0) Mean Corpuscular Volume 95 fL (79-100) Mean Corpuscular Hemoglobin 32 pg (25-35) Mean Corpuscular Hemoglobin Concent 34 g/dL (31-37) Red Cell Distribution Width 13.2 % (11.5-14.5) Platelet Count 230 x10^3/uL (140-400) Neutrophils (%) (Auto) 76 % (31-73) Lymphocytes (%) (Auto) 16 % (24-48) Monocytes (%) (Auto) 8 % (0-9) Eosinophils (%) (Auto) 1 % (0-3) Basophils (%) (Auto) 1 % (0-3) Neutrophils # (Auto) 6.6 x10^3uL (1.8-7.7) Lymphocytes # (Auto) 1.4 x10^3/uL (1.0-4.8) Monocytes # (Auto) 0.7 x10^3/uL (0.0-1.1) Eosinophils # (Auto) 0.0 x10^3/uL (0.0-0.7) Basophils # (Auto) 0.0 x10^3/uL (0.0-0.2) Prothrombin Time 10.6 SEC (9.4-11.4) Prothromb Time International Ratio 1.0 (0.9-1.1) Sodium Level 138 mmol/L (136-145) Potassium Level 4.8 mmol/L (3.5-5.1) Chloride Level 98 mmol/L (98-107) Carbon Dioxide Level 37 mmol/L (21-32) Anion Gap 3 (6-14) Blood Urea Nitrogen 16 mg/dL (8-26) Creatinine 1.0 mg/dL (0.7-1.3) Estimated GFR (Cockcroft-Gault) 75.2 BUN/Creatinine Ratio 16 (6-20) Glucose Level 140 mg/dL (70-99) Calcium Level 8.6 mg/dL (8.5-10.1) Total Bilirubin 0.5 mg/dL (0.2-1.0) Aspartate Amino Transf (AST/SGOT) 18 U/L (15-37) Alanine Aminotransferase (ALT/SGPT) 29 U/L (16-63) Alkaline Phosphatase 68 U/L (46-116) Troponin I Quantitative 0.226 ng/mL (0-0.055) CG-Fnp-P-Type Natriuretic Peptide 2621 pg/mL (0-124) Total Protein 6.9 g/dL (6.4-8.2) Albumin 2.9 g/dL (3.4-5.0) Albumin/Globulin Ratio 0.7 (1.0-1.7) Lactic Acid Level 1.6 mmol/L (0.4-2.0) Influenza Type A (Rapid) Negative (NEGATIVE) Influenza Type B (Rapid) Negative (NEGATIVE) Nasal Screen MRSA (PCR) Negative (Negative) Test 08/08/17 21:55 08/09/17 03:40 08/09/17 11:00 08/10/17 06:05 Troponin I Quantitative 0.128 ng/mL (0-0.055) 0.081 ng/mL (0-0.055) White Blood Count 5.5 x10^3/uL (4.0-11.0) 9.3 x10^3/uL (4.0-11.0) Red Blood Count 3.84 x10^6/uL (4.30-5.70) 3.50 x10^6/uL (4.30-5.70) Hemoglobin 12.4 g/dL (13.0-17.5) 11.2 g/dL (13.0-17.5) Hematocrit 36.9 % (39.0-53.0) 33.6 % (39.0-53.0) Mean Corpuscular Volume 96 fL (79-100) 96 fL (79-100) Mean Corpuscular Hemoglobin 32 pg (25-35) 32 pg (25-35) Mean Corpuscular Hemoglobin Concent 34 g/dL (31-37) 33 g/dL (31-37) Red Cell Distribution Width 13.1 % (11.5-14.5) 13.3 % (11.5-14.5) Platelet Count 186 x10^3/uL (140-400) 142 x10^3/uL (140-400) Neutrophils (%) (Auto) 93 % (31-73) 77 % (31-73) Lymphocytes (%) (Auto) 5 % (24-48) 18 % (24-48) Monocytes (%) (Auto) 2 % (0-9) 5 % (0-9) Eosinophils (%) (Auto) 0 % (0-3) 0 % (0-3) Basophils (%) (Auto) 0 % (0-3) 0 % (0-3) Neutrophils # (Auto) 5.1 x10^3uL (1.8-7.7) 7.1 x10^3uL (1.8-7.7) Lymphocytes # (Auto) 0.3 x10^3/uL (1.0-4.8) 1.7 x10^3/uL (1.0-4.8) Monocytes # (Auto) 0.1 x10^3/uL (0.0-1.1) 0.5 x10^3/uL (0.0-1.1) Eosinophils # (Auto) 0.0 x10^3/uL (0.0-0.7) 0.0 x10^3/uL (0.0-0.7) Basophils # (Auto) 0.0 x10^3/uL (0.0-0.2) 0.0 x10^3/uL (0.0-0.2) Sodium Level 140 mmol/L (136-145) 143 mmol/L (136-145) Potassium Level 4.7 mmol/L (3.5-5.1) 4.6 mmol/L (3.5-5.1) Chloride Level 102 mmol/L (98-107) 105 mmol/L (98-107) Carbon Dioxide Level 35 mmol/L (21-32) 36 mmol/L (21-32) Anion Gap 3 (6-14) 2 (6-14) Blood Urea Nitrogen 15 mg/dL (8-26) 12 mg/dL (8-26) Creatinine 0.9 mg/dL (0.7-1.3) 0.9 mg/dL (0.7-1.3) Estimated GFR (Cockcroft-Gault) 85.0 85.0 Glucose Level 225 mg/dL (70-99) 93 mg/dL (70-99) Calcium Level 8.4 mg/dL (8.5-10.1) 8.1 mg/dL (8.5-10.1) Magnesium Level 2.2 mg/dL (1.8-2.4) 2.1 mg/dL (1.8-2.4) Blood Gas pH 7.41 (7.35-7.46) Blood Gas PCO2 49 mmHg (35-46) Blood Gas PO2 99 mmHg (80-100) Blood Gas HCO3 31 mmol/L (21-28) Arterial Bld O2 Saturation (Calc) 98 % (92-99) FiO2 28 % BUN/Creatinine Ratio 13 (6-20) Total Bilirubin 0.3 mg/dL (0.2-1.0) Aspartate Amino Transf (AST/SGOT) 16 U/L (15-37) Alanine Aminotransferase (ALT/SGPT) 25 U/L (16-63) Alkaline Phosphatase 53 U/L (46-116) Total Protein 5.8 g/dL (6.4-8.2) Albumin 2.5 g/dL (3.4-5.0) Albumin/Globulin Ratio 0.8 (1.0-1.7) Microbiology 08/08/17 Blood Culture - Preliminary, Resulted NO GROWTH AFTER 1 DAY Medications Current Medications Albuterol/ Ipratropium (Duoneb) 3 ml 1X ONCE NEB Last administered on at 15:45; Start 08/08/17 at 15:45; Stop 08/08/17 at 15:46; Status DC Albuterol Sulfate (Ventolin) 5 mg 1X ONCE NEB Last administered on 08/08/17at 16:00; Start 08/08/17 at 15:45; Stop 08/08/17 at 15:46; Status DC Methylprednisolone Sodium Succinate (SOLU-Medrol 125MG VIAL) 125 mg 1X ONCE IV Last administered on 08/08/17at 16:00; Start 08/08/17 at 15:45; Stop 08/08/17 at 15:46; Status DC Sodium Chloride 1,000 ml @ 1,000 mls/hr 1X ONCE IV Last administered on at 15:45; Start 08/08/17 at 15:45; Stop 08/08/17 at 16:44; Status DC Aspirin (Children'S Aspirin) 324 mg 1X ONCE PO Last administered on 08/08/17at 16:00; Start 08/08/17 at 15:45; Stop 08/08/17 at 15:46; Status DC Ibuprofen (Motrin) 600 mg 1X ONCE PO ; Start 08/08/17 at 15:45; Stop 08/08/17 at 15:45; Status DC Sodium Chloride 1,000 ml @ 1,000 mls/hr 1X ONCE IV ; Start 08/08/17 at 16:15; Stop 08/08/17 at 16:30; Status DC Ondansetron HCl (Zofran) 4 mg 1X ONCE IV ; Start 08/08/17 at 16:30; Stop at 16:30; Status DC Ondansetron HCl (Zofran) 4 mg PRN Q4HRS PRN IV NAUSEA/VOMITING; Start 08/08/17 at 16:30; Stop 08/09/17 at 16:29; Status DC Morphine Sulfate (Morphine 2mg Syringe) 2 mg PRN Q2HR PRN IV PAIN; Start at 16:30; Stop 08/08/17 at 18:43; Status DC Acetaminophen (Tylenol) 650 mg PRN Q4HRS PRN PO FEVER; Start 08/08/17 at 16:30 ; Stop 08/09/17 at 16:29; Status DC Nitroglycerin (Nitrostat) 0.4 mg PRN Q5MIN PRN SL CHEST PAIN; Start 08/08/17 at 16:30; Stop 08/09/17 at 16:29; Status DC Albuterol/ Ipratropium (Duoneb) 3 ml RTQID NEB ; Start 08/08/17 at 20:00; Stop 08/08/17 at 20:40; Status DC Sodium Chloride 2,610 ml @ 2,610 mls/hr Q1H ONCE IV Last administered on at 18:34; Start 08/08/17 at 17:00; Stop 08/08/17 at 17:59; Status DC Ceftriaxone Sodium 1 gm/ Sodium Chloride 50 ml @ 100 mls/hr 1X ONCE IV ; Start 08/08/17 at 17:15; Stop 08/08/17 at 17:44; Status UNV Ceftriaxone Sodium (Rocephin) 1 gm 1X ONCE IVP Last administered on 08/08/17at 17:30; Start 08/08/17 at 17:30; Stop 08/08/17 at 17:31; Status DC Morphine Sulfate (Morphine 4mg Syringe) 2 mg PRN Q2HR PRN IV PAIN Last administered on 08/09/17 15:03; Start 08/08/17 at 18:43; Stop 08/09/17 at 16:29 ; Status DC Nicotine (Nicoderm Cq 21mg) 1 patch DAILY TD Last administered on 08/10/17 07: 38; Start 08/08/17 at 21:00 Enoxaparin Sodium (Lovenox) 40 mg Q24H SQ Last administered on 08/09/17 20:17 ; Start 08/08/17 at 21:00 Alprazolam (Xanax) 0.25 mg PRN Q4HRS PRN PO ANXIETY Last administered on 09:12; Start 08/08/17 at 20:30 Albuterol/ Ipratropium (Duoneb) 3 ml RTQID NEB Last administered on 08/10/17 09:39; Start 08/08/17 at 21:00 Montelukast Sodium (Singulair) 10 mg HS PO Last administered on 08/09/17 20:17 ; Start 08/08/17 at 21:00 Tamsulosin HCl (Flomax) 0.4 mg HS PO Last administered on 08/09/17 20:17; Start 08/08/17 at 21:00 Oxycodone HCl (OxyCONTIN) 10 mg PRN BID PRN PO PAIN Last administered on 07:38; Start 08/08/17 at 21:00 Diltiazem HCl (Cardizem 24hr Cd) 120 mg DAILY PO Last administered on at 09:14; Start 08/10/17 at 09:00 Levothyroxine Sodium (Synthroid) 25 mcg DAILY06 PO Last administered on 05:19; Start 08/10/17 at 06:00 Prednisone (Prednisone) 10 mg DAILY PO Last administered on 08/10/17at 09:14; Start 08/10/17 at 09:00 Active Scripts Active Reported Prednisone 10 Mg Tablet 10 Mg PO DAILY Levothyroxine Sodium 25 Mcg Tablet 1 Tab PO DAILY06 Diltiazem 24HR Cd (Diltiazem Hcl) 120 Mg Cap.er.24h 1 Cap PO DAILY Tamsulosin Hcl 0.4 Mg Cap.er.24h 1 Cap PO HS LAST DOSE GIVEN: DATE: TIME: NEXT DOSE DUE: DATE: TIME: Oxycodone Hcl 10 Mg Tablet 1 Tab PO BID PRN LAST DOSE GIVEN: DATE: TIME: NEXT DOSE DUE: DATE: TIME: NICODERM CQ 21mg (Nicotine) 1 Each Patch.td24 1 Patch TP DAILY LAST DOSE GIVEN: DATE: TIME: NEXT DOSE DUE: DATE: TIME: Singulair Tablet (Montelukast Sodium) 10 Mg Tablet 10 Mg PO HS LAST DOSE GIVEN: DATE: TIME: NEXT DOSE DUE: DATE: TIME: Duoneb 0.5-3(2.5) Mg/3 Ml (Albuterol/Ipratropium) 3 Ml Ampul.neb 3 Ml NEB QID LAST DOSE GIVEN: DATE: TIME: NEXT DOSE DUE: DATE: TIME: Alprazolam 0.25 Mg Tablet 1 Tab PO Q4HRS PRN LAST DOSE GIVEN: DATE: TIME: NEXT DOSE DUE: DATE: TIME: Albuterol Sulfate Neb Soln (Albuterol Sulfate) 1.25 Mg/3 Ml Vial.neb 1 Vial NEB Q4HRS PRN LAST DOSE GIVEN: DATE: TIME: NEXT DOSE DUE: DATE: TIME: Vitals/I & O Vital Sign - Last 24 Hours 08/09/17 08/09/17 08/09/17 08/09/17 11:00 11:18 14:29 15:03 Temp 98.5 Pulse 97 Resp 18 B/P (MAP) 118/64 (82) Pulse Ox 96 O2 Delivery Nasal Cannula Nasal Cannula Nasal Cannula O2 Flow Rate 3.0 2.0 2.0 08/09/17 08/09/17 08/09/17 08/09/17 15:10 15:33 15:53 16:13 Temp 98.5 Pulse Ox 96 O2 Delivery Nasal Cannula Nasal Cannula Nasal Cannula O2 Flow Rate 2.0 2.0 3.0 08/09/17 08/09/17 08/09/17 08/09/17 18:18 19:20 19:38 20:17 Temp 98.5 Pulse 109 107 Resp 18 21 20 B/P (MAP) 100/59 (73) 114/66 (82) Pulse Ox 96 99 O2 Delivery Nasal Cannula Nasal Cannula Nasal Cannula Nasal Cannula O2 Flow Rate 2.0 3.0 2.0 3.0 08/09/17 08/09/17 08/09/17 08/09/17 20:40 20:45 21:05 22:20 Pulse 63 112 116 Resp 18 20 22 B/P (MAP) 115/67 (83) 115/67 (83) 90/46 (61) Pulse Ox 92 97 98 98 O2 Delivery Nasal Cannula Nasal Cannula Nasal Cannula Nasal Cannula O2 Flow Rate 2.0 2.0 3.0 3.0 08/09/17 08/10/17 08/10/17 08/10/17 23:35 00:13 00:20 02:20 Pulse 107 101 Resp 19 22 20 B/P (MAP) 110/73 (85) 108/69 (82) Pulse Ox 96 98 O2 Delivery Nasal Cannula Nasal Cannula Nasal Cannula Nasal Cannula O2 Flow Rate 3.0 3.0 3.0 3.0 08/10/17 08/10/17 08/10/17 08/10/17 04:05 04:05 06:39 07:48 Temp 97.4 Pulse 94 98 Resp 20 18 B/P (MAP) 108/74 (85) 119/78 (92) Pulse Ox 99 100 O2 Delivery Nasal Cannula Nasal Cannula Nasal Cannula O2 Flow Rate 3.0 3.0 3.0 08/10/17 08/10/17 08/10/17 08:00 09:14 09:40 Pulse 90 Pulse Ox 97 O2 Delivery Nasal Cannula Nasal Cannula O2 Flow Rate 3.0 2.0 Intake and Output 08/09/17 08/09/17 08/10/17 15:00 23:00 07:00 Intake Total 300 ml 480 ml Output Total 600 ml 700 ml Balance -300 ml -220 ml JULISA SPRINGER MD 08/10/17 1614: PROGRESS NOTES Review of Relevant Pt. seen and examined. Agree with above PHARMACY SERVICES REPRESENTATIVE note. 66 y.o with multiple risk factors presenting with recurrent chest pain and elevated troponin Plan for cardiac cath tomorrow. Discussed r/b/a with patient and he is agreeable. Thanks. Will f/u after cath tomorrow. ALENA COOLEY APRN Aug 10, 2017 10:31 JULISA SPRINGER MD Aug 10, 2017 16:14
--- NOTE | 2017-08-10 12:17 | PDOC3 ---
Discharge Summary Visit Information Date of Admission: Aug 08, 2017 Date of Discharge: Aug 10, 2017 Final Diagnosis Problems Medical Problems: (1) COPD exacerbation Status: Acute (2) Elevated troponin Status: Acute ent Problems Medical Problems: (1) COPD exacerbation Status: Acute (2) Elevated troponin Status: Acute 1. troponin elevation - mild, likely demand related. Echo WNL this month. In light of episode of ventricular tachycardia that occurred during last admission and recurrent short salvos as well as complaints of chest pain, suggest cardiac cath tomorrow. 2. Ventricular tachycardia - 9 beats. 3. atrial fibrillation with RVR - remains SR 4. COPD exacerbation - mgmt per PCP 5. tobaccoism - cessation encouraged Problems: Brief Hospital Course Allergies Allergies Coded Allergies Type Severity Reaction Last Updated Verified No Known Drug Allergies 07/22/17 No Vital Signs Vital Signs Date Time Temp Pulse Resp B/P (MAP) Pulse Ox O2 Delivery O2 Flow Rate FiO2 08/10/17 11:30 97.9 08/10/17 09:40 97 Nasal Cannula 2.0 08/10/17 09:14 90 08/10/17 06:39 18 119/78 (92) Lab Results Laboratory Tests Test 08/08/17 15:30 08/08/17 17:33 08/08/17 18:16 08/08/17 19:20 White Blood Count 8.7 x10^3/uL (4.0-11.0) Red Blood Count 4.20 x10^6/uL (4.30-5.70) Hemoglobin 13.4 g/dL (13.0-17.5) Hematocrit 39.7 % (39.0-53.0) Mean Corpuscular Volume 95 fL (79-100) Mean Corpuscular Hemoglobin 32 pg (25-35) Mean Corpuscular Hemoglobin Concent 34 g/dL (31-37) Red Cell Distribution Width 13.2 % (11.5-14.5) Platelet Count 230 x10^3/uL (140-400) Neutrophils (%) (Auto) 76 % (31-73) Lymphocytes (%) (Auto) 16 % (24-48) Monocytes (%) (Auto) 8 % (0-9) Eosinophils (%) (Auto) 1 % (0-3) Basophils (%) (Auto) 1 % (0-3) Neutrophils # (Auto) 6.6 x10^3uL (1.8-7.7) Lymphocytes # (Auto) 1.4 x10^3/uL (1.0-4.8) Monocytes # (Auto) 0.7 x10^3/uL (0.0-1.1) Eosinophils # (Auto) 0.0 x10^3/uL (0.0-0.7) Basophils # (Auto) 0.0 x10^3/uL (0.0-0.2) Prothrombin Time 10.6 SEC (9.4-11.4) Prothromb Time International Ratio 1.0 (0.9-1.1) Sodium Level 138 mmol/L (136-145) Potassium Level 4.8 mmol/L (3.5-5.1) Chloride Level 98 mmol/L (98-107) Carbon Dioxide Level 37 mmol/L (21-32) Anion Gap 3 (6-14) Blood Urea Nitrogen 16 mg/dL (8-26) Creatinine 1.0 mg/dL (0.7-1.3) Estimated GFR (Cockcroft-Gault) 75.2 BUN/Creatinine Ratio 16 (6-20) Glucose Level 140 mg/dL (70-99) Calcium Level 8.6 mg/dL (8.5-10.1) Total Bilirubin 0.5 mg/dL (0.2-1.0) Aspartate Amino Transf (AST/SGOT) 18 U/L (15-37) Alanine Aminotransferase (ALT/SGPT) 29 U/L (16-63) Alkaline Phosphatase 68 U/L (46-116) Troponin I Quantitative 0.226 ng/mL (0-0.055) RR-Chx-V-Type Natriuretic Peptide 2621 pg/mL (0-124) Total Protein 6.9 g/dL (6.4-8.2) Albumin 2.9 g/dL (3.4-5.0) Albumin/Globulin Ratio 0.7 (1.0-1.7) Lactic Acid Level 1.6 mmol/L (0.4-2.0) Influenza Type A (Rapid) Negative (NEGATIVE) Influenza Type B (Rapid) Negative (NEGATIVE) Nasal Screen MRSA (PCR) Negative (Negative) Test 08/08/17 21:55 08/09/17 03:40 08/09/17 11:00 08/10/17 06:05 Troponin I Quantitative 0.128 ng/mL (0-0.055) 0.081 ng/mL (0-0.055) White Blood Count 5.5 x10^3/uL (4.0-11.0) 9.3 x10^3/uL (4.0-11.0) Red Blood Count 3.84 x10^6/uL (4.30-5.70) 3.50 x10^6/uL (4.30-5.70) Hemoglobin 12.4 g/dL (13.0-17.5) 11.2 g/dL (13.0-17.5) Hematocrit 36.9 % (39.0-53.0) 33.6 % (39.0-53.0) Mean Corpuscular Volume 96 fL (79-100) 96 fL (79-100) Mean Corpuscular Hemoglobin 32 pg (25-35) 32 pg (25-35) Mean Corpuscular Hemoglobin Concent 34 g/dL (31-37) 33 g/dL (31-37) Red Cell Distribution Width 13.1 % (11.5-14.5) 13.3 % (11.5-14.5) Platelet Count 186 x10^3/uL (140-400) 142 x10^3/uL (140-400) Neutrophils (%) (Auto) 93 % (31-73) 77 % (31-73) Lymphocytes (%) (Auto) 5 % (24-48) 18 % (24-48) Monocytes (%) (Auto) 2 % (0-9) 5 % (0-9) Eosinophils (%) (Auto) 0 % (0-3) 0 % (0-3) Basophils (%) (Auto) 0 % (0-3) 0 % (0-3) Neutrophils # (Auto) 5.1 x10^3uL (1.8-7.7) 7.1 x10^3uL (1.8-7.7) Lymphocytes # (Auto) 0.3 x10^3/uL (1.0-4.8) 1.7 x10^3/uL (1.0-4.8) Monocytes # (Auto) 0.1 x10^3/uL (0.0-1.1) 0.5 x10^3/uL (0.0-1.1) Eosinophils # (Auto) 0.0 x10^3/uL (0.0-0.7) 0.0 x10^3/uL (0.0-0.7) Basophils # (Auto) 0.0 x10^3/uL (0.0-0.2) 0.0 x10^3/uL (0.0-0.2) Sodium Level 140 mmol/L (136-145) 143 mmol/L (136-145) Potassium Level 4.7 mmol/L (3.5-5.1) 4.6 mmol/L (3.5-5.1) Chloride Level 102 mmol/L (98-107) 105 mmol/L (98-107) Carbon Dioxide Level 35 mmol/L (21-32) 36 mmol/L (21-32) Anion Gap 3 (6-14) 2 (6-14) Blood Urea Nitrogen 15 mg/dL (8-26) 12 mg/dL (8-26) Creatinine 0.9 mg/dL (0.7-1.3) 0.9 mg/dL (0.7-1.3) Estimated GFR (Cockcroft-Gault) 85.0 85.0 Glucose Level 225 mg/dL (70-99) 93 mg/dL (70-99) Calcium Level 8.4 mg/dL (8.5-10.1) 8.1 mg/dL (8.5-10.1) Magnesium Level 2.2 mg/dL (1.8-2.4) 2.1 mg/dL (1.8-2.4) Blood Gas pH 7.41 (7.35-7.46) Blood Gas PCO2 49 mmHg (35-46) Blood Gas PO2 99 mmHg (80-100) Blood Gas HCO3 31 mmol/L (21-28) Arterial Bld O2 Saturation (Calc) 98 % (92-99) FiO2 28 % BUN/Creatinine Ratio 13 (6-20) Total Bilirubin 0.3 mg/dL (0.2-1.0) Aspartate Amino Transf (AST/SGOT) 16 U/L (15-37) Alanine Aminotransferase (ALT/SGPT) 25 U/L (16-63) Alkaline Phosphatase 53 U/L (46-116) Total Protein 5.8 g/dL (6.4-8.2) Albumin 2.5 g/dL (3.4-5.0) Albumin/Globulin Ratio 0.8 (1.0-1.7) Brief Hospital Course Mr. Nash is a 66 old [sex] who presented with [ ] HISTORY OF PRESENT ILLNESS: This is a 66-year-old male who has been progressively short of breath, which has been intermittent over the last 6 months, but now has become quite troublesome with coughing up sputum, and requiring oxygen at home. He continues to smoke. He was also recently admitted not too long ago and was transferred to [place] and was supposed to get a catheterization by the [place], but they declined and did not do it. He had been transferred down to [place] after a 2-minute run of ventricular tachycardia, then AFib with RVR. HE STILL NEEDS A CATH HE HAS MULTIPLE RISK FACTORS. HIS COPD HAS BEEN TREATED WITH STEROIDS AND BREATHING TREATMENTS AND OXYGEN. HIS TROPONIN HAS BEEN ELEVATED. HE HAS CONSENTED TO BE TRANSFERRED TO [facility] FOR A CATH. Discharge Information Condition at Discharge: Stable Disposition/Orders: D/C to Another Facility Dischare Medications Current Medications Albuterol/ Ipratropium (Duoneb) 3 ml 1X ONCE NEB Last administered on at 15:45; Start 08/08/17 at 15:45; Stop 08/08/17 at 15:46; Status DC Albuterol Sulfate (Ventolin) 5 mg 1X ONCE NEB Last administered on 08/08/17at 16:00; Start 08/08/17 at 15:45; Stop 08/08/17 at 15:46; Status DC Methylprednisolone Sodium Succinate (SOLU-Medrol 125MG VIAL) 125 mg 1X ONCE IV Last administered on 08/08/17at 16:00; Start 08/08/17 at 15:45; Stop 08/08/17 at 15:46; Status DC Sodium Chloride 1,000 ml @ 1,000 mls/hr 1X ONCE IV Last administered on at 15:45; Start 08/08/17 at 15:45; Stop 08/08/17 at 16:44; Status DC Aspirin (Children'S Aspirin) 324 mg 1X ONCE PO Last administered on 08/08/17at 16:00; Start 08/08/17 at 15:45; Stop 08/08/17 at 15:46; Status DC Ibuprofen (Motrin) 600 mg 1X ONCE PO ; Start 08/08/17 at 15:45; Stop 08/08/17 at 15:45; Status DC Sodium Chloride 1,000 ml @ 1,000 mls/hr 1X ONCE IV ; Start 08/08/17 at 16:15; Stop 08/08/17 at 16:30; Status DC Ondansetron HCl (Zofran) 4 mg 1X ONCE IV ; Start 08/08/17 at 16:30; Stop at 16:30; Status DC Ondansetron HCl (Zofran) 4 mg PRN Q4HRS PRN IV NAUSEA/VOMITING; Start 08/08/17 at 16:30; Stop 08/09/17 at 16:29; Status DC Morphine Sulfate (Morphine 2mg Syringe) 2 mg PRN Q2HR PRN IV PAIN; Start at 16:30; Stop 08/08/17 at 18:43; Status DC Acetaminophen (Tylenol) 650 mg PRN Q4HRS PRN PO FEVER; Start 08/08/17 at 16:30 ; Stop 08/09/17 at 16:29; Status DC Nitroglycerin (Nitrostat) 0.4 mg PRN Q5MIN PRN SL CHEST PAIN; Start 08/08/17 at 16:30; Stop 08/09/17 at 16:29; Status DC Albuterol/ Ipratropium (Duoneb) 3 ml RTQID NEB ; Start 08/08/17 at 20:00; Stop 08/08/17 at 20:40; Status DC Sodium Chloride 2,610 ml @ 2,610 mls/hr Q1H ONCE IV Last administered on at 18:34; Start 08/08/17 at 17:00; Stop 08/08/17 at 17:59; Status DC Ceftriaxone Sodium 1 gm/ Sodium Chloride 50 ml @ 100 mls/hr 1X ONCE IV ; Start 08/08/17 at 17:15; Stop 08/08/17 at 17:44; Status UNV Ceftriaxone Sodium (Rocephin) 1 gm 1X ONCE IVP Last administered on 08/08/17at 17:30; Start 08/08/17 at 17:30; Stop 08/08/17 at 17:31; Status DC Morphine Sulfate (Morphine 4mg Syringe) 2 mg PRN Q2HR PRN IV PAIN Last administered on 08/09/17at 15:03; Start 08/08/17 at 18:43; Stop 08/09/17 at 16:29 ; Status DC Nicotine (Nicoderm Cq 21mg) 1 patch DAILY TD Last administered on 08/10/17at 07: 38; Start 08/08/17 at 21:00 Enoxaparin Sodium (Lovenox) 40 mg Q24H SQ Last administered on 08/09/17 20:17 ; Start 08/08/17 at 21:00 Alprazolam (Xanax) 0.25 mg PRN Q4HRS PRN PO ANXIETY Last administered on 09:12; Start 08/08/17 at 20:30 Albuterol/ Ipratropium (Duoneb) 3 ml RTQID NEB Last administered on 08/10/17 09:39; Start 08/08/17 at 21:00 Montelukast Sodium (Singulair) 10 mg HS PO Last administered on 08/09/17 20:17 ; Start 08/08/17 at 21:00 Tamsulosin HCl (Flomax) 0.4 mg HS PO Last administered on 08/09/17 20:17; Start 08/08/17 at 21:00 Oxycodone HCl (OxyCONTIN) 10 mg PRN BID PRN PO PAIN Last administered on 07:38; Start 08/08/17 at 21:00 Diltiazem HCl (Cardizem 24hr Cd) 120 mg DAILY PO Last administered on at 09:14; Start 08/10/17 at 09:00 Levothyroxine Sodium (Synthroid) 25 mcg DAILY06 PO Last administered on 05:19; Start 08/10/17 at 06:00 Prednisone (Prednisone) 10 mg DAILY PO Last administered on 08/10/17at 09:14; Start 08/10/17 at 09:00 Methylprednisolone Sodium Succinate (SOLU-Medrol 125MG VIAL) 125 mg 1X ONCE IV ; Start 08/10/17 at 12:30; Stop 08/10/17 at 12:31 Active Scripts Active Reported Prednisone 10 Mg Tablet 10 Mg PO DAILY Levothyroxine Sodium 25 Mcg Tablet 1 Tab PO DAILY06 Diltiazem 24HR Cd (Diltiazem Hcl) 120 Mg Cap.er.24h 1 Cap PO DAILY Tamsulosin Hcl 0.4 Mg Cap.er.24h 1 Cap PO HS LAST DOSE GIVEN: DATE: TIME: NEXT DOSE DUE: DATE: TIME: Oxycodone Hcl 10 Mg Tablet 1 Tab PO BID PRN LAST DOSE GIVEN: DATE: TIME: NEXT DOSE DUE: DATE: TIME: NICODERM CQ 21mg (Nicotine) 1 Each Patch.td24 1 Patch TP DAILY LAST DOSE GIVEN: DATE: TIME: NEXT DOSE DUE: DATE: TIME: Singulair Tablet (Montelukast Sodium) 10 Mg Tablet 10 Mg PO HS LAST DOSE GIVEN: DATE: TIME: NEXT DOSE DUE: DATE: TIME: Duoneb 0.5-3(2.5) Mg/3 Ml (Albuterol/Ipratropium) 3 Ml Ampul.neb 3 Ml NEB QID LAST DOSE GIVEN: DATE: TIME: NEXT DOSE DUE: DATE: TIME: Alprazolam 0.25 Mg Tablet 1 Tab PO Q4HRS PRN LAST DOSE GIVEN: DATE: TIME: NEXT DOSE DUE: DATE: TIME: Albuterol Sulfate Neb Soln (Albuterol Sulfate) 1.25 Mg/3 Ml Vial.neb 1 Vial NEB Q4HRS PRN LAST DOSE GIVEN: DATE: TIME: NEXT DOSE DUE: DATE: TIME: Patient Instructions Patient Instuctions TRANSFER TO [facility] ANNE DO Aug 10, 2017 12:17
[2017-08-10] MEDS ORDERED: methylPREDNISolone SOD SUCC PF 125 MG/2 ML VIAL. IV ONE (12:30)
[2017-08-10] MEDS ORDERED: ALBUTEROL SULFATE 2.5 MG/3 ML NEBU. NEB PRN (15:15)
[2017-08-11] MEDS ORDERED: ASPIRIN ENTERIC COATED 325 MG TABLET.DR. PO SCH (08:00)
== END 2017-08-10 17:17 | disposition short-term general hospital (02) | DRG 189 ==
LOC: ER 15:08 → ICU 18:30
PROVIDERS: ADMIT Family Medicine; ATTEND Family Medicine
DX: J96.02 Acute respiratory failure with hypercapnia (principal); I47.2 Ventricular tachycardia; I50.9 Heart failure, unspecified; Z99.81 Dependence on supplemental oxygen; I48.91 Unspecified atrial fibrillation; J44.1 Chronic obstructive pulmonary disease with (acute) exacerbation; J96.01 Acute respiratory failure with hypoxia; F41.9 Anxiety disorder, unspecified; R74.8 Abnormal levels of other serum enzymes; I25.10 Atherosclerotic heart disease of native coronary artery without angina pectoris; N40.0 Benign prostatic hyperplasia without lower urinary tract symptoms; Z79.82 Long term (current) use of aspirin; Z86.79 Personal history of other diseases of the circulatory system; Z79.899 Other long term (current) drug therapy; Z98.42 Cataract extraction status, left eye; Z98.41 Cataract extraction status, right eye; Z71.6 Tobacco abuse counseling; F17.210 Nicotine dependence, cigarettes, uncomplicated
CPT/HCPCS: 36415; 71045; 80048; 80053; 82803; 83605; 83735; 83880; 84484; 85025; 85610; 87040; 87641; 87804; 93005; 94640; 96361; 96374; 96375; 99406; J0696; J1650; J2270; J2930; J7512; J7613; J7620; 99285-25; J7030

== ENCOUNTER 2017-08-14 22:53 | Emergency (ER) | payer MEDICARE, OTHER ==
[~2017-08-14] VITALS: Ht 193 cm; Wt 66.7 kg
[~2017-08-14 22:53] MED LIST changes: +ALBU1.25 NEB; +DILT120C80 PO; +LEVO25TA4 PO; +MONT10TA6 PO; +PRED-220 PO; +TAMS0.4C2 PO
--- NOTE | 2017-08-14 23:32 | PHYS DOC ---
General Chief Complaint: POST-OP PROBLEM Stated Complaint: POST ANGIOPLASTY PROBLEMS WITH PLUG AND SWELLING Time Seen by MD: 23:17 Source: patient, old records Exam Limitations: no limitations Problems: History of Present Illness Initial Comments 66-year-old male who comes to the ED complaining of possible complications from angioplasty. Patient was discharged from [facility] yesterday after extensive cardiac workup including angioplasty for history of arrhythmia. Patient states that today he has noticed some bruising extending down his leg from the catheter site in his right groin, denies any new swelling or discomfort. He also says that his feet looked more swollen to him. Denies any new cough fever chills chest pain or dyspnea he has COPD history with chronic respiratory failure uses home O2. Timing/Duration: other Severity: mild Modifying Factors: improves with other Associated Symptoms: other Allergies: Coded Allergies: No Known Drug Allergies (Unverified , 07/22/17) Past Medical History Medical History: other (COPD, arrhythmia, chronic respiratory failure he uses home O2, tobaccoism) Surgical History: other (cataracts, prostate biopsy, nose and back surgeries) Social History Smoker: greater than 1 pack/day Alcohol: none Drugs: none Review of Systems Constitutional: denies chills, denies fever, denies malaise EENTM: denies ear pain, denies nose pain, denies throat pain Respiratory: see HPI, cough, shortness of breath, wheezing Cardiovascular: see HPI, denies palpitations, denies syncope Gastrointestinal: denies abdominal pain, denies nausea, denies vomiting Psychiatric/Neurological: anxiety, denies headache, denies paresthesia Hematologic/Lymphatic: denies anemia, denies blood clots Physical Exam General Appearance: mild distress (anxious, hyperventilating) Ear, Nose, Throat: hearing grossly normal, normal ENT inspection, normal pharynx Neck: non-tender, supple Respiratory: chest non-tender, no respiratory distress, decreased breath sounds , wheezing Cardiovascular: normal peripheral pulses, regular rate, rhythm, no edema Extremities: non-tender, normal inspection, no calf tenderness Neurologic/Psychiatric: patient navigator II-XII nml as tested, no motor/sensory deficits, normal mood/affect (very anxious initially however relaxes over time), oriented x 3 Orders, Labs, Meds EKG: NSR [address] segment elevation interpreted by me. Chest AP: Increased perihilar markings bilaterally with hyperinflation, questionable right lower lobe infiltrate versus technique interpreted by me Labs unremarkable I discussed normal bruising at catheter site and reassured the patient. Due to questionable infiltrate and the patient's comorbidities we will go ahead and treat with doxycycline. I discussed signs and symptoms to monitor as well as indications for urgent return to the department patient expressed agreement and understanding with the treatment plan. Departure Time of Disposition: 00:50 Disposition: 01 HOME, SELF-CARE Diagnosis: anxiety, RLL Infiltrate Condition: STABLE Patient Instructions: Chronic Obstructive Pulmonary Disease, [id number] Additional Instructions: Continue current medications Rx: doxycycline Follow up with a doctor in 2-3 days for recheck. Return to ED with new or changing symptoms. TOMMIE BOONE DO Aug 14, 2017 23:32
[2017-08-14 23:42] LABS: BASO % 0 % (0-3); EOS # 0.2 x10^3/uL (0.0-0.7); EOS % 4 % (0-3); HEMATOCRIT 39.6 % (39.0-53.0); HEMOGLOBIN 13.5 g/dL (13.0-17.5); LYMPH # 1.1 x10^3/uL (1.0-4.8); LYMPH % 20 % (24-48); MEAN CORPUSCULAR HEMOGLOBIN 33 pg (25-35); MEAN CORPUSCULAR HGB CONC 34 g/dL (31-37); MEAN CORPUSCULAR VOLUME 95 fL (79-100); MONO # 0.4 x10^3/uL (0.0-1.1); MONO % 7 % (0-9); NEUT # 3.6 x10^3uL (1.8-7.7); NEUT % 68 % (31-73); PLATELET COUNT 225 x10^3/uL (140-400); RED BLOOD COUNT 4.16 x10^6/uL (4.30-5.70); RED CELL DISTRIBUTION WIDTH 13.6 % (11.5-14.5); WHITE BLOOD COUNT 5.4 x10^3/uL (4.0-11.0)
[2017-08-14] MEDS: IPRATRPIUM/ALBUTEROL 0.5/2.5MG 3 ML NEBU. NEB ONE (23:49)
[2017-08-14] MEDS: AZITHROMYCIN 500 MG in IV NORMAL SALINE 250ML 250 ML IV ONE (23:49)
[2017-08-14 23:59] LABS: ALBUMIN 2.9 g/dL (3.4-5.0); ALBUMIN/GLOBULIN RATIO 0.8 (1.0-1.7); CALCIUM 8.7 mg/dL (8.5-10.1); CREATININE 0.8 mg/dL (0.7-1.3); GFR 97.3; POTASSIUM 4.2 mmol/L (3.5-5.1); TOTAL BILIRUBIN 0.5 mg/dL (0.2-1.0); TOTAL PROTEIN 6.5 g/dL (6.4-8.2)
[2017-08-14] MEDS: methylPREDNISolone SOD SUCC PF 125 MG/2 ML VIAL. IV ONE (23:59)
[2017-08-15 00:01] LABS: BARBITURATES NEG (NEG); BENZODIAZEPINES POS (NEG); CANNABINOIDS NEG (NEG); COCAINE NEG (NEG); METHADONE NEG (NEG); OPIATES NEG (NEG); PHENCYCLIDINE NEG (NEG)
[2017-08-15 00:07] LABS: BGAS PH 7.41 (7.35-7.46)
[2017-08-15 00:13] LABS: AMPHETAMINE/METHAMPHETAMINE NEG (NEG)
[2017-08-15] MEDS ORDERED: DOXY100T9 PO (00:54)
[2017-08-15 00:57] VITALS: BP 129/72
[2017-08-15] MEDS: DOXYCYCLINE HYCLATE 100 MG TABLET PO ONE (01:00)
[2017-08-15] MEDS ORDERED: DOXYCYCLINE HYCLATE 100 MG TABLET ONE (01:01)
--- NOTE | 2017-08-15 06:17 | EKG ---
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
--- NOTE | 2017-08-15 08:18 | RAD ---
Portable chest, 08/14/2017: History: Shortness of breath Comparison is made to a study from 08/08/2017. The heart size is normal. The lungs are hyperexpanded due to known emphysema. There are scattered parenchymal scars. Mild infiltrate is now evident medially in the right base. The left lung is clear. There is no evidence of pleural fluid. IMPRESSION: 1. Emphysema with parenchymal scarring. 2. Mild right basilar infiltrate compatible with pneumonia. Note: The findings were called to personnel in the [facility] ER at 8:15 AM on 08/15/2017.
== END 2017-08-15 01:08 | disposition home or self-care (01) ==
LOC: ER 22:53
DX: F41.9 Anxiety disorder, unspecified (principal); R91.8 Other nonspecific abnormal finding of lung field; J44.9 Chronic obstructive pulmonary disease, unspecified; Z99.81 Dependence on supplemental oxygen; Z87.891 Personal history of nicotine dependence; Z98.61 Coronary angioplasty status
CPT/HCPCS: 36415; 71045; 80053; 80307; 82803; 83690; 83880; 84484; 85025; 85610; 85730; 93005; 94640; 96374; 99285; J2930; J7620; G0479

== ENCOUNTER 2017-08-18 20:04 | Emergency (ER) | payer MEDICARE, OTHER ==
[~2017-08-18] VITALS: Ht 193 cm; Wt 66.7 kg
[~2017-08-18 20:04] MED LIST changes: +DOXY100T9 PO
[2017-08-18 20:05] VITALS: BP 134/73
[2017-08-18] MEDS ORDERED: methylPREDNISolone SOD SUCC PF 125 MG/2 ML VIAL. ONE (20:36)
[2017-08-18] MEDS ORDERED: cefTRIAXone SODIUM 1 GM VIAL IV ONE (20:36)
[2017-08-18] MEDS ORDERED: AZITHROMYCIN 500 MG VIAL. IV ONE (20:36)
[2017-08-18 20:37] LABS: BASO % 0 % (0-3); EOS # 0.1 x10^3/uL (0.0-0.7); EOS % 3 % (0-3); HEMATOCRIT 41.7 % (39.0-53.0); HEMOGLOBIN 14.1 g/dL (13.0-17.5); LYMPH # 1.2 x10^3/uL (1.0-4.8); LYMPH % 27 % (24-48); MEAN CORPUSCULAR HEMOGLOBIN 32 pg (25-35); MEAN CORPUSCULAR HGB CONC 34 g/dL (31-37); MEAN CORPUSCULAR VOLUME 95 fL (79-100); MONO # 0.5 x10^3/uL (0.0-1.1); MONO % 11 % (0-9); NEUT # 2.7 x10^3uL (1.8-7.7); NEUT % 59 % (31-73); PLATELET COUNT 315 x10^3/uL (140-400); RED BLOOD COUNT 4.38 x10^6/uL (4.30-5.70); RED CELL DISTRIBUTION WIDTH 13.6 % (11.5-14.5); WHITE BLOOD COUNT 4.6 x10^3/uL (4.0-11.0)
[2017-08-18] MEDS ORDERED: IV NORMAL SALINE 250ML 250 ML ONE (20:39)
--- NOTE | 2017-08-18 20:44 | PHYS DOC ---
General Chief Complaint: SHORTNESS OF BREATH Stated Complaint: SOA Time Seen by MD: 20:22 Source: patient Exam Limitations: no limitations Problems: History of Present Illness Initial Comments 66-year-old male arrives to the emergency department complaining of cough and shortness of breath. Patient has chronic respiratory failure due to COPD he uses 2-3 L of O2 at home as a baseline. He states that his cough has been persistent he hasn't gotten any better since last visit, bringing up some mild yellow discharge. Vital signs are stable on arrival using home O2, no new or worsening symptoms no new chest pain or fevers. Patient was seen here August 14 with similar symptoms, he left his antibiotic prescription and the exam room upon discharge. I advised him that next time he leaves without his medications he can call the ED and we can call his prescription in. Timing/Duration: other Severity: moderate Modifying Factors: improves with medication, worse with movement, improves with rest Associated Symptoms: cough, malaise, shortness of breath Allergies: Coded Allergies: No Known Drug Allergies (Unverified , 07/22/17) Past Medical History Medical History: other (chronic respiratory failure uses 2-3 L home O2 continuously, CHF, COPD, tobaccoism, arrhythmia) Surgical History: other (recent heart catheterization for arrhythmia reportedly negative) Social History Smoker: cigarettes Alcohol: none Drugs: none Review of Systems Constitutional: denies chills, denies diaphoresis, denies fever, malaise EENTM: denies ear pain, denies nose pain, nose congestion, denies throat pain Respiratory: cough, shortness of breath, wheezing Cardiovascular: denies chest pain, denies palpitations, denies syncope Gastrointestinal: denies abdominal pain, denies nausea, denies vomiting Musculoskeletal: denies back pain, denies joint swelling, denies neck pain Psychiatric/Neurological: denies headache, denies numbness, denies paresthesia , denies weakness Hematologic/Lymphatic: denies blood clots, denies easy bleeding, denies easy bruising Physical Exam General Appearance: no apparent distress, thin Ear, Nose, Throat: hearing grossly normal, normal ENT inspection, normal pharynx Neck: non-tender, supple Respiratory: other (wheeze bilaterally with rales at the right base good air movement no respiratory distress beyond baseline) Cardiovascular: normal peripheral pulses, regular rate, rhythm Gastrointestinal: non tender, soft Extremities: normal range of motion, normal inspection, no pedal edema, no calf tenderness Neurologic/Psychiatric: coat feller II-XII nml as tested, no motor/sensory deficits, alert, oriented x 3 Orders, Labs, Meds EKG: NSR 89 bpm, T inversion v2 PAC/PVC unchanged from prior. Interp by me AB.41/59/89/37/97%/28 AP chest: Persistent right lower lobe infiltrate unchanged from 225 study. Interpreted by me. Labs reassuring CO2 36 urine positive for benzos I discussed findings with the patient. He continues to appear stable as last ED visit. Received Rocephin and Zithromax intravenously as well as Solu-Medrol and a DuoNeb and symptoms have improved from ED arrival. No apparent emergent condition. I discussed prescription and [id number] medications, discussed signs and symptoms to monitor as well as indications for urgent return to the department. Discussed medication, compliance and the patient expressed agreement and understanding of treatment plan. He was advised to discontinue smoking. Departure Time of Disposition: 23:07 Disposition: 01 HOME, SELF-CARE Diagnosis: RLL Pneumonia, Noncompliance Condition: STABLE Patient Instructions: Pneumonia, Adult, [id number] Additional Instructions: Please review the patient education materials given by ED staff. Continue current medications including breathing treatments and O2. [id number] Tylenol as needed. Prescription: Doxycycline, prednisone, guaifenesin with codeine syrup Follow-up with your doctor on Tuesday for recheck. Take medications as prescribed without any missed doses. Return to ED as needed. TOMMIE BOONE DO Aug 18, 2017 20:44
[2017-08-18] MEDS ORDERED: methylPREDNISolone SOD SUCC PF 125 MG/2 ML VIAL. IV ONE (20:45)
[2017-08-18] MEDS ORDERED: IV NORMAL SALINE 1,000ML 1,000 ML IV SCH (20:45)
[2017-08-18] MEDS ORDERED: AZITHROMYCIN 500 MG in IV NORMAL SALINE 250ML 250 ML IV ONE (20:45)
[2017-08-18] MEDS ORDERED: IPRATRPIUM/ALBUTEROL 0.5/2.5MG 3 ML NEBU. NEB ONE (20:45)
[2017-08-18] MEDS ORDERED: cefTRIAXone IV Push 1 GM VIAL. IVP ONE (20:45)
[2017-08-18 20:51] LABS: ALBUMIN 3.1 g/dL (3.4-5.0); ALBUMIN/GLOBULIN RATIO 0.9 (1.0-1.7); CALCIUM 8.9 mg/dL (8.5-10.1); CREATININE 0.8 mg/dL (0.7-1.3); GFR 97.3; POTASSIUM 4.2 mmol/L (3.5-5.1); TOTAL BILIRUBIN 0.5 mg/dL (0.2-1.0); TOTAL PROTEIN 6.7 g/dL (6.4-8.2)
--- NOTE | 2017-08-18 21:07 | EKG ---
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
[2017-08-18 22:56] LABS: BARBITURATES NEG (NEG); BENZODIAZEPINES POS (NEG); CANNABINOIDS NEG (NEG); COCAINE NEG (NEG); METHADONE NEG (NEG); OPIATES NEG (NEG); PHENCYCLIDINE NEG (NEG)
[2017-08-18 22:57] LABS: AMPHETAMINE/METHAMPHETAMINE NEG (NEG)
[2017-08-18 23:00] LABS: BACTERIA,URINE 0 /HPF (0-FEW); BILIRUBIN,URINE NEG (NEG); CLARITY,URINE CLEAR; COLOR,URINE YELLOW; GLUCOSE,URINE NEG (NEG); NITRITE,URINE NEG (NEG); RBC,URINE 0 /HPF (0-2); SQUAMOUS EPITHELIAL CELL,UR OCC /LPF; UROBILINOGEN,URINE 1 mg/dL (0.2 mg/dL); WBC,URINE RARE /HPF (0-4)
[2017-08-18] MEDS ORDERED: DOXY100T PO (23:06)
[2017-08-18] MEDS ORDERED: PRED20TA PO (23:06)
[2017-08-18] MEDS ORDERED: GUAI118L13 PO (23:06)
[2017-08-18 23:09] LABS: INFLUENZA A PATIENT NEGATIVE (NEGATIVE); INFLUENZA B PATIENT NEGATIVE (NEGATIVE)
[2017-08-18] MEDS ORDERED: guaiFENesin/CODEINE 100mg/10mg 5 ML LIQUID PO ONE (23:30)
[2017-08-18 23:38] LABS: BGAS PH 7.45 (7.35-7.46)
--- NOTE | 2017-08-19 08:27 | RAD ---
Portable chest, 08/18/2017: History: Shortness of breath Comparison is made to a study from 08/14/2017. The heart size is normal. There is emphysema with mild parenchymal scarring. Right basilar infiltrate has largely cleared. No new pulmonary abnormality is seen. There is no evidence of pleural fluid. IMPRESSION: 1. Emphysema. 2. Resolving mild right basilar infiltrate.
== END 2017-08-18 23:20 | disposition home or self-care (01) ==
LOC: ER 20:04
DX: J18.1 Lobar pneumonia, unspecified organism (principal); I50.9 Heart failure, unspecified; J44.9 Chronic obstructive pulmonary disease, unspecified; F17.210 Nicotine dependence, cigarettes, uncomplicated; Z91.19 Patient's noncompliance with other medical treatment and regimen; Z99.81 Dependence on supplemental oxygen
CPT/HCPCS: 36415; 36600; 71045; 80053; 80307; 81001; 82550; 82803; 83605; 83690; 83880; 84484; 85025; 87040; 87804; 93005; 94640; 96365; 96375; 99285; J0456; J0696; J2930; J7050; J7620; G0479; J7030

== ENCOUNTER 2017-09-15 22:24 | Emergency (ER) | payer MEDICARE, OTHER ==
[~2017-09-15] VITALS: Ht 193 cm; Wt 66.7 kg
[~2017-09-15 22:24] MED LIST changes: +DOXY100T PO; +GUAI118L13 PO; +PRED20TA PO
--- NOTE | 2017-09-15 22:36 | ED.ADGEN ---
Past History Past Medical History: Arrhythmia, CAD, CHF, COPD Past Surgical History: Angioplasty, Other Smoking: Cigarettes Alcohol Use: None Drug Use: None Adult General Chief Complaint Chief Complaint ". I got my COPD acting up.. and I need some anxiety meds... " HPI HPI Patient is a 67 year old male who presents with above hx and complaints of dyspnea, wheezing, coughing and increase in his anxiety. Patient has had some discolored sputum production. Patient has O2 dependent at 2 L. Pt. has a chronic history of coronary artery disease, CHF, COPD/emphysema, PTSD, and anxiety disorder. Patient does continue to smoke approximately 2 packs per day. Patient denies illicit drug use. Patient denies any travel or immunosuppression. Patient normally at the [facility]. Review of Systems Review of Systems Constitutional: Denies fever or chills [] Eyes: Denies change in visual acuity, redness, or eye pain [] HENT: Complaints of nasal congestion Respiratory: Complaints of cough and wheezing Cardiovascular: No additional information not addressed in HPI [] GI: Denies abdominal pain, nausea, vomiting, bloody stools or diarrhea [] : Denies dysuria or hematuria [] Musculoskeletal: Veins of chronic back pain and joint pain [] Integument: Denies rash or skin lesions [] Neurologic: Denies headache, focal weakness or sensory changes [] Endocrine: Denies polyuria or polydipsia [] All other systems were reviewed and found to be within normal limits, except as documented in this note. Family History Family History Noncontributory to presentation Current Medications Current Medications Current Medications Medications (Trade) Dose Ordered Sig/Ingrid Start Time Stop Time Status Last Admin Dose Admin Albuterol Sulfate (Ventolin Hfa) 1 puff 1X ONCE 09/16/17 01:00 09/16/17 01:01 DC Albuterol/ Ipratropium (Duoneb) 3 ml 1X ONCE 09/15/17 23:45 09/15/17 23:46 DC Aspirin (Sonido Aspirin) 325 mg 1X ONCE 09/15/17 23:00 09/15/17 23:01 DC 09/15/17 23:00 325 MG Azithromycin (Zithromax) 500 mg 1X ONCE 09/15/17 23:45 09/15/17 23:46 DC 09/15/17 23:42 500 MG Ceftriaxone Sodium 1 gm/ Sodium Chloride 50 ml @ 100 mls/hr 1X ONCE 09/15/17 23:45 09/16/17 00:14 DC Lorazepam (Ativan) 1 mg 1X ONCE 09/15/17 23:45 09/15/17 23:46 DC 09/15/17 23:41 1 MG Methylprednisolone Sodium Succinate (SOLU-Medrol 125MG VIAL) 125 mg 1X ONCE 09/15/17 23:45 09/15/17 23:46 DC Sodium Chloride 1,000 ml @ 100 mls/hr Q10H 09/15/17 23:00 09/16/17 01:17 DC See nursing for home medications Allergies Allergies Allergies Coded Allergies Type Severity Reaction Last Updated Verified No Known Drug Allergies 07/22/17 No Physical Exam Physical Exam Constitutional: Moderately acute distress, non-toxic appearance. [] HENT: Normocephalic, atraumatic, bilateral external ears normal, oropharynx moist, injected pharynx, no oral exudates, nose rhinorrhea Eyes: PERRLA, EOMI, conjunctiva normal, no discharge. [] Neck: Normal range of motion, no tenderness, supple, no stridor. [] Cardiovascular: Tachycardia Heart rate regular rhythm, no murmur [] Lungs & Thorax: Bilateral breath sounds equal at apexes with scattered wheezes throughout on auscultation [] Abdomen: Bowel sounds normal, soft, no tenderness, no masses, no pulsatile masses. [] Skin: Warm, dry, no erythema, no rash. [] Back: No tenderness, no CVA tenderness. [] Extremities: No tenderness, no cyanosis, no clubbing, ROM intact, no edema. [] Neurologic: Alert and oriented X 3, normal motor function, normal sensory function, no focal deficits noted. [] Psychologic: Affect very anxious, angry, judgement poor insight, mood normal. [] Current Patient Data Vital Signs Vital Signs Date Time Temp Pulse Resp B/P (MAP) Pulse Ox O2 Delivery O2 Flow Rate FiO2 09/15/17 22:24 98.1 93 28 99 Room Air Lab Results Laboratory Tests Test 09/15/17 23:15 09/15/17 23:55 White Blood Count 9.4 x10^3/uL (4.0-11.0) Red Blood Count 4.73 x10^6/uL (4.30-5.70) Hemoglobin 15.3 g/dL (13.0-17.5) Hematocrit 45.4 % (39.0-53.0) Mean Corpuscular Volume 96 fL (79-100) Mean Corpuscular Hemoglobin 32 pg (25-35) Mean Corpuscular Hemoglobin Concent 34 g/dL (31-37) Red Cell Distribution Width 13.7 % (11.5-14.5) Platelet Count 265 x10^3/uL (140-400) Neutrophils (%) (Auto) 69 % (31-73) Lymphocytes (%) (Auto) 22 % (24-48) L Monocytes (%) (Auto) 7 % (0-9) Eosinophils (%) (Auto) 1 % (0-3) Basophils (%) (Auto) 1 % (0-3) Neutrophils # (Auto) 6.5 x10^3uL (1.8-7.7) Lymphocytes # (Auto) 2.1 x10^3/uL (1.0-4.8) Monocytes # (Auto) 0.6 x10^3/uL (0.0-1.1) Eosinophils # (Auto) 0.1 x10^3/uL (0.0-0.7) Basophils # (Auto) 0.1 x10^3/uL (0.0-0.2) Prothrombin Time 10.1 SEC (9.4-11.4) Prothrombin Time INR 1.0 (0.9-1.1) PTT 23 SEC (23-33) D-Dimer (Funmi) 0.34 mg/L (0.00-0.50) Sodium Level 141 mmol/L (136-145) Potassium Level 3.8 mmol/L (3.5-5.1) Chloride Level 104 mmol/L (98-107) Carbon Dioxide Level 32 mmol/L (21-32) Anion Gap 5 (6-14) L Blood Urea Nitrogen 8 mg/dL (8-26) Creatinine 0.7 mg/dL (0.7-1.3) Estimated GFR (Cockcroft-Gault) 113.2 Glucose Level 86 mg/dL (70-99) Calcium Level 9.2 mg/dL (8.5-10.1) Magnesium Level 2.1 mg/dL (1.8-2.4) Total Bilirubin 0.3 mg/dL (0.2-1.0) Direct Bilirubin 0.1 mg/dL (0.0-0.2) Aspartate Amino Transferase (AST) 14 U/L (15-37) L Alanine Aminotransferase (ALT) 21 U/L (16-63) Alkaline Phosphatase 63 U/L (46-116) Creatine Kinase 28 U/L (39-308) L Creatine Kinase MB (Mass) 0.8 ng/mL (0.0-3.6) Creatine Kinase MB Relative Index 2.9 % (0-4) Troponin I Quantitative < 0.017 ng/mL (0-0.055) TT-Hzi-L-Type Natriuretic Peptide 79 pg/mL (0-124) Total Protein 7.0 g/dL (6.4-8.2) Albumin 3.6 g/dL (3.4-5.0) Lipase 123 U/L (73-393) Lactic Acid Level 0.9 mmol/L (0.4-2.0) EKG EKG My interpretation of EKG shows sinus rhythm at 94 bpm. He does have occasional premature atrial complexes[], by multiple P waves. Right bundle branch block. No findings acute STEMI with contralateral changes Radiology/Procedures Radiology/Procedures My interpretation of chest x-ray shows marked COPD/emphysema type pattern of hyper expansion and flattened diaphragm. No large infiltrate or consolidation. Course & Med Decision Making Course & Med Decision Making Pertinent Labs and Imaging studies reviewed. (See chart for details). Patient refusing admission currently for COPD exacerbation. Patient states he only needs anxiety meds. Patient to use Ventolin 2 puffs 4 times a day. Prednisone 50 mg a day. Take his Zithromax 250 mg daily for 5 days. Patient keep follow- up at [facility]. Return if he elects to be admitted. Patient strongly encouraged to stop smoking. Patient to follow-up with counseling center [facility] for filling anxiety meds or Ativan prescription. Patient refused to give urine sample for evaluation. [] Final Impression Final Impression 1. COPD/emphysema exacerbation 2. Anxiety disorder[] 3. Tobacco abuse Problems: Dragon Disclaimer Dragon Disclaimer This electronic medical record was generated, in whole or in part, using a voice recognition dictation system. KALIA QUIÑONES MD Sep 15, 2017 22:36
[2017-09-15] MEDS ORDERED: IV NORMAL SALINE 1,000ML 1,000 ML IV SCH (23:00)
[2017-09-15] MEDS ORDERED: ASPIRIN 325 MG TABLET PO ONE (23:00)
[2017-09-15] MEDS ORDERED: AZITHROMYCIN 250 MG TABLET. PO ONE (23:45)
[2017-09-15] MEDS ORDERED: LORazepam 1 MG TABLET PO ONE (23:45)
[2017-09-15] MEDS ORDERED: IPRATRPIUM/ALBUTEROL 0.5/2.5MG 3 ML NEBU. NEB ONE (23:45)
[2017-09-15] MEDS ORDERED: methylPREDNISolone SOD SUCC PF 125 MG/2 ML VIAL. IV ONE (23:45)
[2017-09-15 23:49] LABS: BASO # 0.1 x10^3/uL (0.0-0.2); BASO % 1 % (0-3); EOS # 0.1 x10^3/uL (0.0-0.7); EOS % 1 % (0-3); HEMATOCRIT 45.4 % (39.0-53.0); HEMOGLOBIN 15.3 g/dL (13.0-17.5); LYMPH # 2.1 x10^3/uL (1.0-4.8); LYMPH % 22 % (24-48); MEAN CORPUSCULAR HEMOGLOBIN 32 pg (25-35); MEAN CORPUSCULAR HGB CONC 34 g/dL (31-37); MEAN CORPUSCULAR VOLUME 96 fL (79-100); MONO # 0.6 x10^3/uL (0.0-1.1); MONO % 7 % (0-9); NEUT # 6.5 x10^3uL (1.8-7.7); NEUT % 69 % (31-73); PLATELET COUNT 265 x10^3/uL (140-400); RED BLOOD COUNT 4.73 x10^6/uL (4.30-5.70); RED CELL DISTRIBUTION WIDTH 13.7 % (11.5-14.5); WHITE BLOOD COUNT 9.4 x10^3/uL (4.0-11.0)
[2017-09-16 00:07] LABS: ALBUMIN 3.6 g/dL (3.4-5.0); CALCIUM 9.2 mg/dL (8.5-10.1); CREATININE 0.7 mg/dL (0.7-1.3); DIRECT BILIRUBIN 0.1 mg/dL (0.0-0.2); GFR 113.2; MAGNESIUM 2.1 mg/dL (1.8-2.4); POTASSIUM 3.8 mmol/L (3.5-5.1); TOTAL BILIRUBIN 0.3 mg/dL (0.2-1.0)
[2017-09-16] MEDS ORDERED: PRED50TA PO (00:29)
[2017-09-16] MEDS ORDERED: AZIT250T PO (00:30)
[2017-09-16 01:00] VITALS: BP 138/84
[2017-09-16] MEDS ORDERED: ALBUTEROL SULFATE 8GM INHALER. INH ONE (01:00)
--- NOTE | 2017-09-16 03:50 | EKG ---
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
--- NOTE | 2017-09-16 07:16 | RAD ---
Indication: Dyspnea, COPD Technique: PA and lateral views of the chest Comparison: Previous study from 08/18/2017 Findings: Heart is normal in size. Lungs are hyperinflated with flattening of diaphragms. No focal consolidation. No pneumothorax or pleural effusion. Utilized bony thorax within normal limits. Impression: No acute cardiopulmonary process. Findings of COPD.
== END 2017-09-16 01:13 | disposition home or self-care (01) ==
LOC: ER 22:24
DX: F41.9 Anxiety disorder, unspecified (principal); I25.10 Atherosclerotic heart disease of native coronary artery without angina pectoris; I50.9 Heart failure, unspecified; J44.9 Chronic obstructive pulmonary disease, unspecified; F17.210 Nicotine dependence, cigarettes, uncomplicated; Z99.81 Dependence on supplemental oxygen; Z98.61 Coronary angioplasty status
CPT/HCPCS: 36415; 71046; 80048; 80076; 82553; 83605; 83690; 83735; 83880; 84443; 84484; 85025; 85379; 85610; 85730; 87040; 93005; 99285; J0456

== ENCOUNTER 2017-09-19 00:08 | Emergency (ER) | payer MEDICARE, OTHER ==
[~2017-09-19] VITALS: Ht 193 cm; Wt 65.8 kg
[~2017-09-19 00:08] MED LIST changes: +AZIT250T PO; +PRED50TA PO
[2017-09-19] MEDS: LORazepam 1 MG TABLET PO ONE (00:29)
--- NOTE | 2017-09-19 00:29 | EKG ---
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
--- NOTE | 2017-09-19 00:38 | PHYS DOC ---
Past History Past Medical History: Anxiety, Arrhythmia, CAD, CHF, COPD Past Surgical History: Angioplasty, Other Smoking: Cigarettes Alcohol Use: None Drug Use: None Adult General Chief Complaint Chief Complaint: DYSPNEA/RESPIRATOY DISTRESS HPI HPI Patient is a 67-year-old male with a history of COPD who presents with complaints of anxiety. Patient is a smoker and continues to smoke despite severe COPD. Patient is refusing all treatment in the ED the only thing that he wants is anxiety medication. Patient had already been form that he needs to find a PCP or go back to the one he had before and have him give him anxiety medications apparently the patient has no follow-up yet as he was told he should do. Review of Systems Review of Systems Constitutional: Denies fever or chills [] Eyes: Denies change in visual acuity, redness, or eye pain [] HENT: Denies nasal congestion or sore throat [] Respiratory: Shortness of breath that is baseline for patient Cardiovascular: No chest pain GI: Denies abdominal pain, nausea, vomiting : Denies dysuria or hematuria [] Musculoskeletal: Denies back pain or joint pain [] Integument: Denies rash or skin lesions [] Neurologic: Denies headache, focal weakness or sensory changes [] Psych: Anxious All other systems were reviewed and found to be within normal limits, except as documented in this note. Allergies Allergies Allergies Coded Allergies Type Severity Reaction Last Updated Verified No Known Drug Allergies 07/22/17 No Physical Exam Physical Exam Constitutional: Well developed, well nourished, no acute distress, non-toxic appearance. Cachectic HENT: Normocephalic, atraumatic, bilateral external ears normal, oropharynx dry , no oral exudates, nose normal. [] Eyes:EOMI, conjunctiva normal, no discharge. [] Neck: Normal range of motion, no tenderness, supple, no stridor. No JVD, no meningeal signs Cardiovascular: Tachycardia, equal pulses, normal perfusion Lungs & Thorax: Mild expiratory wheezing at both lung bases, mild tachypnea Abdomen: Bowel sounds normal, soft, no tenderness, Skin: Warm, dry, no erythema, no rash. [] Back: No tenderness, no CVA tenderness. Normal range of motion Extremities: No tenderness, no DVT, ROM intact, no edema. [] Neurologic: Alert and oriented X 3, normal motor function, , no focal deficits noted. [] Psychologic: Mildly anxious, no signs of psychosis, patient displays normal mentation and medical decision capacity EKG EKG 0027 102 tachycardia, no STEMI[] Radiology/Procedures Radiology/Procedures [] Course & Med Decision Making Course & Med Decision Making Pertinent Labs and Imaging studies reviewed. (See chart for details) Tobacco abuse counseling has been provided, total time 3 minutes. Risk and benefits have been discussed with the patient which include but are not limited to improvement of symptoms, decrease of COPD exacerbations, decrease of cancer. Patient understands the need to quit and states she will try to do so. I have offered the patient treatment as well as hydration and check of his blood work but the patient refuses any treatment or interventions during this ED visit and states that the only thing he needs at this time is anxiety medication. He states he has inhalers and other medications at home. I had long discussion with the patient and make clear to him that is important for him to get this type of medications for one single provider as they can be dangerous and the response to the medications needs to be monitored by a single provider who will be able to see the patient regularly. The patient understands and agrees to follow-up as directed. I'm very very clear to the patient today that we'll give him anxiety medication this one time only but I will not continue to do this again The patient is displaying medical decision capacity, he repeats back to me his intentions as well as the reasons why he refuses medical treatment which included the fact that he has medications at home for his COPD. We honor the patient's autonomy and we will comply with his request for no intervention. Patient will leave the emergency department AGAINST MEDICAL ADVICE ROM at risk and benefits including and permanent disability having explained. [] Dragon Disclaimer Dragon Disclaimer This electronic medical record was generated, in whole or in part, using a voice recognition dictation system. Departure Departure: Impression: Primary Impression: Anxiety Additional Impressions: COPD (chronic obstructive pulmonary disease) Tobacco abuse Tobacco abuse counseling Dehydration Disposition: 07 AGAINST MEDICAL ADVICE Condition: STABLE Referrals: PCP,NO (PCP) Patient Instructions: Anxiety and Panic Attacks, Chronic Obstructive Pulmonary Disease, Dehydration, Adult, Discharge Against Medical Advice, Smoking Cessation Problem Qualifiers Robert LANDERS MD Sep 19, 2017 00:38
[2017-09-19 00:50] VITALS: BP 147/82
--- NOTE | 2017-09-19 07:12 | RAD ---
Chest, 2 views, 09/19/2017: History: Shortness of breath Comparison is made to a study from 09/15/2017. The heart size is normal. The lungs are hyperexpanded compatible with emphysema. There are mild parenchymal scars. No acute infiltrate is seen. There is no evidence of pleural fluid or pneumothorax. IMPRESSION: No acute cardiopulmonary abnormality is detected.
== END 2017-09-19 00:50 | disposition left against medical advice (07) ==
LOC: ER 00:08
DX: F41.9 Anxiety disorder, unspecified (principal); J44.9 Chronic obstructive pulmonary disease, unspecified; E86.0 Dehydration; I25.10 Atherosclerotic heart disease of native coronary artery without angina pectoris; F17.210 Nicotine dependence, cigarettes, uncomplicated; I50.9 Heart failure, unspecified; Z98.61 Coronary angioplasty status
CPT/HCPCS: 71046; 93005; 99284